=== PATIENT | female | born 1970 | race Caucasian/White ===

== ENCOUNTER 2016-07-17 12:59 | Inpatient (IN) ==
[2016-07-17] MEDS ORDERED: ASPIRIN PO STA (13:12)
[2016-07-17] MEDS ORDERED: NITROGLYCERIN SL PRN (13:12)
--- NOTE | 2016-07-17 13:40 | ED EKG INTERP ---
EKG Interpretation - EKG Time of EKG reading by physician:: 13:02 EKG Read and Signed by:: Chago Domínguez EKG Interpretation (*Must complete 3 of following elements*): Abnormal Rate: 90 Rhythm: normal sinus rhythm Comments: nonspecific T wave abnormality Attestation - Scribe Verification/Attestation Scribe:: Jasmyne Ramos Acting as Scribe for:: Chago Domínguez Scribe documention review:: This chart was documented by a scribe and accurately reflects the service the provider performed and the decisions made by the provider.
[2016-07-17 13:48] LABS: MANUAL DIFF NEEDED? NO
[2016-07-17 13:51] LABS: EOS# 0.19 X1000 (0.0-0.7); EOS% 3.2 % (0.0-10.0); HEMATOCRIT 26.2 % (37.0-47.0); HEMOGLOBIN 8.3 g/dL (12.0-16.0); LYMPH# 1.48 X1000 (1.2-3.4); LYMPH% 24.8 % (20.5-51.1); MCH 26.3 PG (27-31); MCHC 31.7 g/dL (33-37); MCV 83.2 FL (81-99); MONO# 0.43 X1000 (0.11-0.59); MONO% 7.2 % (1.7-9.3); MPV 9.1 FL (7.4-10.4); NEUT% 62.8 % (42.2-75.2); PLT 325 X1000 (130-400); RBC 3.15 XMIL (4.2-5.4)
[2016-07-17 14:04] LABS: INR 1.01; PROTIME 10.7 Seconds (9.2-11.7); PTT 27.2 Seconds (22.0-36.0)
[2016-07-17 15:00] LABS: ALBUMIN 2.7 g/dL (3.5-5.0); CALCIUM 8.4 mg/dL (8.8-10.2); MAGNESIUM 1.8 mg/dL (1.5-2.7); POTASSIUM 4.1 mmol/L (3.5-5.1); TOTAL BILIRUBIN 0.26 mg/dL (0.20-1.00); TOTAL PROTEIN 6.4 g/dL (6.3-8.3)
[2016-07-17] MEDS ORDERED: LASIX IV ONE ×2 (16:26→22:34)
--- NOTE | 2016-07-17 16:32 | PROVIDER DOCUMENTATION ---
HPI-Chest Pain - General Source: patient - History of Present Illness-CP Location: reports: other (L side chest) Chest Pain Radiation: reports: no radiation Quality of Pain: reports: aching Severity in ED: mild Onset/Duration: 24 hours ago Timing: still present, intermittent Context/Activities at Onset: reports: light activity Modifying Factors: improves with: nothing Associated Symptoms: reports: weakness. denies: abdominal pain, back pain, diaphoresis, dizziness, edema, fatigue, fever/chills, headache, heartburn, nausea, rash, shortness of breath, swelling/lump in chest, syncope, vomiting Nitro Today/Relief: no nitro taken today Aspirin Treatment Today: no aspirin today Prior Chest Pain/Cardiac Workup: reports: stress test Similar Symptoms Previously?: Yes Recently Seen Here or By Another Healthcare Provider: No <Jasmyne Ramos - Last Filed: 07/17/16 17:24> <Dany Forte - Last Filed: 07/17/16 18:55> - General Chief Complaint: Chest Pain Stated Complaint: CP Time Seen by Provider: 07/17/16 15:52 Allergies/Adverse Reactions: Patient Allergies Allergy/AdvReac Type Severity Reaction Status Date / Time No Known Allergies Allergy Verified 07/17/16 16:42 Home Medications: Carvedilol 12.5 mg PO BID 02/27/13 Aspirin EC 1 tab PO DAILY 11/18/15 Atorvastatin Calcium [Lipitor] 80 mg PO HS 11/18/15 Hum Insulin NPH/Reg Insulin Hm [Novolin 70-30 100 Unit/ml Vial] 10 unit SQ BID 11/18/15 - History of Present Illness-CP Nature of Presenting Problem: Pt is 45 y/o F presents to the ED with L side chest pain. Pt states chest pain started last night. Pt states pain in L inner thigh as well. Pt denies trauma or injury. Pt denies F. Pt states stent placed in 2009. Pt states two strokes on both sides. (Jasmyne Ramos) Review of Systems - Adult - REVIEW OF SYSTEMS - ADULT Constitutional: denies: chills, fever Eyes: denies: blurred vision, double vision Ears, Nose, Mouth & Throat: denies: ear pain, nose pain, throat pain Cardiovascular: reports: chest pain (L side). denies: heart murmur, irregular heart rate Respiratory: reports: cough. denies: shortness of breath, wheezing Gastrointestinal: denies: abdominal pain, diarrhea, nausea, vomiting Genitourinary: reports: frequency. denies: dysuria, discharge, hematuria Musculoskeletal: reports: muscle aches (L inner thigh). denies: bone pain, back pain, joint pain, neck pain Integumentary: denies: hives, itching Neurological: denies: dizziness/vertigo, headache/migraines Psychiatric: reports: no symptoms reported Endocrine: reports: no symptoms reported Hematologic/Lymphatic: reports: no symptoms reported Allergic/Immunologic: reports: no symptoms reported All Other Systems: Reviewed and Negative <Jasmyne Ramos - Last Filed: 07/17/16 17:24> Past History - Adult - PAST MEDICAL HISTORY-ADULT Review of Records: reports: Nursing Assessment Review, Medications Reviewed, Social history reviewed & non-contributory. Major Childhood Illnesses: reports: denies history Cardiovascular: reports: CAD, CHF, HTN, hyperlipidemia Respiratory: reports: denies history Gastrointestinal: reports: denies history Obstetrical/Gynecological: reports: denies history Genitourinary: reports: denies history Musculoskeletal: reports: denies history Neurological: reports: CVA Psychiatric: reports: denies history Endocrine/Immune: reports: Diabetes Other Conditions: reports: denies history - PRIOR SURGERIES/PROCEDURES Surgical/Procedure History: reports: cardiac stent, BTL - IMMUNIZATION STATUS Childhood Immunizations: See Nurse Assessment Flu Vaccine: See Nurse Assessment - FAMILY HISTORY Family History: reviewed, not pertinent - SOCIAL HISTORY Smoking: quit less than 1 year, cigarettes Provider spent 3-5 mins advising pt. on dangers of tobacco.: Discussed manners to quit use, and f/u contacts for add'l counseling. Substance Use: denies Living Situation: family <Jasmyne Ramos - Last Filed: 07/17/16 17:24> Physical Exam-General - PHYSICAL EXAM-ADULT Initial Vital Signs Reviewed: Yes - CONSTITUTIONAL General Appearance: appears well, alert, mild distress - EYES Eyes: PERRL/EOMI, pink conjunctivae - HEAD, EARS, NOSE, MOUTH & THROAT HENMT: normocephalic/atraumatic, moist mucous membranes, normal ENT inspection - NECK Neck: non-tender, full range of motion, normal inspection - RESPIRATORY Respiratory: chest non-tender, lungs clear, normal breath sounds - CARDIOVASCULAR Cardiovascular: normal peripheral pulses, regular rate, rhythm, no edema - CHEST (BREASTS) Chest/Breast: tenderness (L side) - GASTROINTESTINAL (ABDOMEN) Abdominal Exam: normal bowel sounds, non tender, soft - LYMPHATIC Lymphatic: no adenopathy - MUSCULOSKELETAL Back Exam: normal inspection, no CVA tenderness, no vertebral tenderness Extremity: normal range of motion, normal gait, tenderness (L inner thigh) - SKIN Integumentary: normal color, normal turgor, warm/dry - NEUROLOGIC Neurologic: private duty aide II-XII nml as tested, grossly normal, no motor/sensory deficits - PSYCHIATRIC Psych/Mental Status: normal mood/affect, normal thought content, normal thought process, oriented x 3 <Jasmyne Ramos - Last Filed: 07/17/16 17:24> Progress - EKG 1 Time of EKG reading by physician:: 16:34 EKG Read and Signed by:: Chago Domínguez EKG Interpretation (*Must complete 3 of following elements*): Abnormal Rate: 87 Rhythm: normal sinus rhythm Comments: T wave abnormality, consider lateral ischemia - XRAY 1 XRAY: Bilateral XRAY Study: Chest Impression: Abnormal XRAY Interpretation: cardiomegaly per Dr. Domínguez - CONSULTS/PCP/HOSPITALIST Notification #1 *Consult/PCP/Hospitalist*: Dr. Stringer Time Discussed: 17:18 (Dr. Stringer accepted admit ) Reason/Comments: Dr. Domínguez consults with Dr. Stringer about admit of Pt <Jasmyne Ramos - Last Filed: 07/17/16 17:24> - CT/MRI 1 CT Study: Lower Ext (bilateral lower extremities) Impression: See EMR Report CT Results: Negative DVT study <Dany Forte - Last Filed: 07/17/16 18:55> - PLAN OF CARE/RESULTS Progress/Plan/Lab Results: Laboratory Tests 07/17/16 07/17/16 07/17/16 13:38 13:38 13:38 WBC 5.96 RBC 3.15 L Hgb 8.3 L Hct 26.2 L MCV 83.2 MCH 26.3 L MCHC 31.7 L RDW Std Deviation 14.8 H Plt Count 325 MPV 9.1 Immature Gran % (Auto) 0.0 Neut % (Auto) 62.8 Lymph % (Auto) 24.8 [place] % (Auto) 7.2 Eos % (Auto) 3.2 Baso % (Auto) 2.0 H Immature Gran # (Auto) 0.00 Neut # 3.74 Lymph # 1.48 [place] # 0.43 Eos # 0.19 Baso # 0.12 PT INR PTT (Actin FS) D-Dimer Sodium 136 Potassium 4.1 Chloride 99 Carbon Dioxide 23 L Anion Gap 14 BUN 14 Creatinine 1.4 H Estimated GFR/1.73 m2 40 BUN/Creatinine Ratio 10 Glucose 156 H Calculated Osmolality 276 Calcium 8.4 L Magnesium 1.8 Total Bilirubin 0.26 AST 13 ALT 11 Alkaline Phosphatase 99 Creatine Kinase 135 Troponin T [id number] Pept 6981 H Total Protein 6.4 Albumin 2.7 L Globulin 3.7 Albumin/Globulin Ratio 0.7 07/17/16 07/17/16 07/17/16 13:38 13:38 13:38 WBC RBC Hgb Hct MCV MCH MCHC RDW Std Deviation Plt Count MPV Immature Gran % (Auto) Neut % (Auto) Lymph % (Auto) [place] % (Auto) Eos % (Auto) Baso % (Auto) Immature Gran # (Auto) Neut # Lymph # [place] # Eos # Baso # PT 10.7 INR 1.01 PTT (Actin FS) 27.2 D-Dimer 1.41 H Sodium Potassium Chloride Carbon Dioxide Anion Gap BUN Creatinine Estimated GFR/1.73 m2 BUN/Creatinine Ratio Glucose Calculated Osmolality Calcium Magnesium Total Bilirubin AST ALT Alkaline Phosphatase Creatine Kinase Troponin T < 0.010 Zio-T-Iirblypmqss Pept Total Protein Albumin Globulin Albumin/Globulin Ratio Orders Category Date Time Status Cardiac Monitoring DIRECTED Care 07/17/16 13:12 Active Saline Loc NOW Care 07/17/16 13:12 Active CHEST-2 VIEWS [RAD] Stat Exams 07/17/16 13:12 Taken LUNG SCAN / VQ [NM] Stat Exams 07/17/16 16:27 Ordered CBC WITH ELECTRONIC DIFF [HEME] Stat Lab 07/17/16 13:38 Completed CK PROFILE [SP CHEM] Stat Lab 07/17/16 13:38 Completed COMPREHENSIVE METABOLIC PANEL [CHEM] Stat Lab 07/17/16 13:38 Completed D-DIMER [CHEM] Stat Lab 07/17/16 13:38 Completed MAGNESIUM [CHEM] Stat Lab 07/17/16 13:38 Completed PRO B-NATRIURETIC PEPTIDE Stat Lab 07/17/16 13:38 Completed PROTIME WITH INR [COAG] Stat Lab 07/17/16 13:38 Completed PTT [COAG] Stat Lab 07/17/16 13:38 Completed TROPONIN T Stat Lab 07/17/16 13:38 Completed Aspirin Med 07/17/16 13:12 Discontinued 325 mg PO STAT STA Furosemide [Lasix] Med 07/17/16 16:26 Discontinued 80 mg IV NOW ONE Nitroglycerin Sl [Nitroglycerin] Med 07/17/16 13:12 Active 0.4 mg SL Q5M PRN PRN EKG [EKG] Stat Ther 07/17/16 13:12 Ordered US [Venous U/S Bilateral Legs] [CV] Stat Ther 07/17/16 15:13 Ordered Vital Signs - 24 hr 07/17/16 07/17/16 13:10 16:32 Temperature 98.0 F Pulse Rate 86 90 Respiratory 20 18 Rate Blood Pressure 149/75 164/101 O2 Sat by Pulse 100 94 L Oximetry (Jasmyne Ramos) Departure - Departure Time of Disposition Order: 17:17 Certified Medical Emergency: Emergent <Jasmyne Ramos - Last Filed: 07/17/16 17:24> <Dany Forte - Last Filed: 07/17/16 18:55> - Departure DIAGNOSIS: Left leg swelling, Elevated d-dimer Chest pain Qualifiers: Chest pain type: unspecified Qualified Code(s): R07.9 - Chest pain, unspecified CHF exacerbation Qualifiers: Congestive heart failure type: unspecified congestive heart failure type Qualified Code(s): I50.9 - Heart failure, unspecified Disposition: ADMITTED INPATIENT 09 Condition: Stable Referrals: Enrique Paige MD [Primary Care Provider] - Attestation - Scribe Verification/Attestation Scribe:: Jasmyne Ramos Acting as Scribe for:: Chago Domínguez Scribe documention review:: This chart was documented by a scribe and accurately reflects the service the provider performed and the decisions made by the provider. <Jasmyne Ramos - Last Filed: 07/17/16 17:24> Physician Attestation
[2016-07-17] MEDS ORDERED: LOVENOX SUBQ ONE (17:23)
[2016-07-17] MEDS ORDERED: NORCO-10 PO ONE (17:37)
--- NOTE | 2016-07-17 18:17 | ED EKG INTERP ---
EKG Interpretation - EKG Time of EKG reading by physician:: 16:34 EKG Read and Signed by:: Chago Domínguez EKG Interpretation (*Must complete 3 of following elements*): Abnormal (T wave abnormality, consider lateral ischemia per Dr. Domínguez) Rate: 87 Rhythm: Normal sinus rhythm Attestation - Scribe Verification/Attestation Scribe:: Dany Forte Acting as Scribe for:: Chago Domínguez Scribe documention review:: This chart was documented by a scribe and accurately reflects the service the provider performed and the decisions made by the provider.
--- NOTE | 2016-07-17 18:51 | Diag Imaging Result Document ---
PROCEDURE NAME: CHEST-2 VIEWS - 07/17/2016 TWO VIEWS OF THE CHEST: FINDINGS: There is fluid present in the fissures on the right. There is blunting of the right costophrenic angle. IMPRESSION: Right pleural effusion.
[2016-07-17] MEDS: ZITHROMAX PO SCH (23:30)
[2016-07-17] MEDS: NORCO-5 PO PRN (23:30)
[2016-07-17] MEDS: PROTONIX IV SCH (23:34)
[2016-07-17] MEDS: ROCEPHIN 1 GM/NS 50 ML IV SCH (23:35)
[2016-07-17] MEDS: COREG PO SCH (23:52)
[2016-07-18 05:24] LABS: ALLEN TEST YES; BE 5.6 mmoll (-3.0-3.0); BLOOD TYPE ARTERIAL; DRAW SITE R RADIAL; METHB 1.3 % (0.0-1.5); O2(CT) 16.9 mL/dL (15.0-23.0); PCO2(98.6) 48 mmHg (35-45); PO2(98.6) 74 mmHg (60-100); SAMPLE BLOOD; SAO2 97.3 % (95.0-100.0); pH(98.6) 7.42 (7.35-7.45)
[2016-07-18 05:25] LABS: MODALITY CANNULA
[2016-07-18] MEDS ORDERED: TYLENOL PO ONE (05:57)
[2016-07-18] MEDS ORDERED: HUMALOG SUBQ SCH (07:00)
[2016-07-18 07:25] LABS: MANUAL DIFF NEEDED? NO
--- NOTE | 2016-07-18 07:30 | Diag Imaging Result Document ---
PROCEDURE NAME: LUNG SCAN / VQ - 07/17/2016 VENTILATION-PERFUSION LUNG SCAN: TECHNIQUE: The patient received 40.2 mCi technetium-99m DTPA aerosol for the ventilation portion of the study. There was injection of 5.5 mCi technetium-99m MAA for the perfusion portion of the study. FINDINGS: There is some attenuation due to the patient's body habitus. No evidence of absolute perfusion defect or ventilation-perfusion mismatch is present. IMPRESSION: Normal study.
[2016-07-18 07:31] LABS: BASO% 1.9 % (0.0-0.8); EOS# 0.23 X1000 (0.0-0.7); EOS% 4.8 % (0.0-10.0); HEMATOCRIT 25.6 % (37.0-47.0); HEMOGLOBIN 7.7 g/dL (12.0-16.0); LYMPH# 1.33 X1000 (1.2-3.4); LYMPH% 27.7 % (20.5-51.1); MCH 25.4 PG (27-31); MCHC 30.1 g/dL (33-37); MCV 84.5 FL (81-99); MONO# 0.45 X1000 (0.11-0.59); MONO% 9.4 % (1.7-9.3); MPV 9.5 FL (7.4-10.4); NEUT% 56.2 % (42.2-75.2); PLT 284 X1000 (130-400); RBC 3.03 XMIL (4.2-5.4); RETIC% 2.56 % (0.8-2.1); RETIC-HE 25.2 PG (28.2-36.6)
--- NOTE | 2016-07-18 07:52 | HISTORY AND PHYSICAL ---
CHIEF COMPLAINT: Chest pain. HISTORY OF PRESENT ILLNESS: A 45-year-old, white female patient of Dr. Paige came for evaluation of chest pain. Chest pain going on for 2 days more so last night. The patient described pain as a sharp pain, lasting for few seconds and goes away. The pain is off and on. The pain lasted all night. On the day of admission the patient also had shortness of breath, leg swelling, orthopnea and decreased exercise tolerance. The patient was also complaining of pain in both the legs mainly in the thigh. The patient does have multiple risk factors for coronary artery disease. She had recent CVA. The patient also has a stent in her coronaries about a year ago. In the emergency room her proBNP was elevated. The patient had Elevated D-dimer. The patient had a V/Q scan done which was indeterminate. Venous Doppler according to the preliminary report was negative. Chest x-ray revealed right pleural effusion and patient also found to be anemic. Her hemoglobin a few months ago was 11; this admission it was 8.3, and we decided to admit the patient for further care. The patient does have chest congestion, cough, some scratchy throat. She was also complaining of headache. No high-grade fever or chills. Denied any nausea or vomiting. No dysuria or hematuria. Denied any bleeding. No further history available at this time. ALLERGIES: No known drug allergy. CURRENT MEDICATIONS: The patient is on lisinopril, aspirin, Lipitor, Coreg, vitamin B12, Glucophage and insulin. PAST MEDICAL HISTORY: Significant for CVA, coronary artery disease and stent, hyperlipidemia and IDDM. PERSONAL HISTORY: The patient denied alcohol or substance abuse. Independent in activities of daily living. FAMILY HISTORY: Significant for premature coronary artery disease. PHYSICAL EXAMINATION: GENERAL: Middle-aged white female patient, in mild distress. VITAL SIGNS: Blood pressure 149/75, pulse 86, respirations 20, temperature 98 degrees. SKIN: Normal turgor. No rash or petechiae. Head atraumatic, normocephalic. [place] conjunctivae. Anicteric sclerae. HEENT: Extraocular muscle movement normal. Fundus cannot be penetrated. Good oral hygiene. No tonsillopharyngeal congestion or exudate. Ears and nose benign. NECK: Supple. No JVD, thyromegaly or lymphadenopathy. CHEST: Bibasilar, a few rales. No movement of accessory muscle of respiration at rest. CARDIOVASCULAR: S1 and S2 heard, 2/6 systolic murmur at the apex. ABDOMEN: Soft, globular. Bowel sounds present. EXTREMITIES: No cyanosis, clubbing, 2 to 3+ pitting edema both the legs. INFECTION CONTROL RN: Alert, awake, answering questions fairly well. CONSIDERATION: 1. Patient admitted with chest pain. Clinically her pain is more of atypical pain but considering her multiple risk factors we are going to check serial EKG and cardiac isoenzymes. Her admission EKG revealed nonspecific T-wave changes. No acute ST-T wave changes. 2. Her other problems includes bilateral leg swelling. Dyspnea on exertion. Orthopnea. Consideration is new onset congestive heart failure. I am going to consider echocardiogram and will do cardiology consult. The patient is already on lisinopril and patient received Lasix. 3. Diabetes mellitus. 4. Hypertension, hyperlipidemia and anemia. We are going to do workup for anemia. Recheck blood work. The patient may need blood transfusion. The patient had some symptoms suggestive of upper respiratory tract infection and bronchitis. We will consider antibiotics, Overall plan discussed with the patient and she is in agreement.
[2016-07-18 07:57] LABS: AGAP 13; ALBUMIN 2.3 g/dL (3.5-5.0); ALKALINE PHOSPHATASE 89 U/L (32-104); BUN 16 mg/dL (8-22); CALCIUM 8.4 mg/dL (8.8-10.2); CHLORIDE 101 mmol/L (98-107); COSMO 287; GOT 12 U/L (10-30); GPT 7 U/L (10-36); HDL 31 mg/dL (45-65); IRON SATURATION 9 %; LDL 89 mg/dL; MAGNESIUM 1.8 mg/dL (1.5-2.7); POTASSIUM 3.9 mmol/L (3.5-5.1); SODIUM 142 mmol/L (136-145); TCO2 28 mmol/L (25-35); TIBC 244 ug/dL; TOTAL BILIRUBIN 0.16 mg/dL (0.20-1.00); TOTAL IRON 21 ug/dL (49-151); TOTAL PROTEIN 5.7 g/dL (6.3-8.3); TRIGLYCERIDES 258 mg/dL (35-135); UNBOUND IRON 223 ug/dL (112-346); VLDL 52 mg/dL
[2016-07-18 08:14] LABS: FREE T4 1.12 ng/dL (0.93-1.70)
[2016-07-18] MEDS: COREG PO SCH ×2 (08:18→20:18)
[2016-07-18] MEDS: PRINIVIL PO SCH (08:18)
[2016-07-18] MEDS: GLUCOPHAGE PO SCH ×3 (08:18→17:55)
[2016-07-18] MEDS: LASIX IV SCH (08:18)
[2016-07-18] MEDS: ZITHROMAX PO SCH (08:18)
[2016-07-18] MEDS: VITAMIN B-12 PO SCH (08:18)
--- NOTE | 2016-07-18 08:31 | EKG Report ---
Test Performed on : 07/17/2016 1:02:13 PM Test Reason : Chest Pain Blood Pressure : / mmHG Vent. Rate : 090 BPM Atrial Rate : 090 BPM P-R Int : 148 ms QRS Dur : 084 ms QT Int : 358 ms P-R-T Axes : 055 001 144 degrees QTc Int : 437 ms Normal sinus rhythm. Nonspecific T wave abnormality Abnormal ECG When compared with ECG of 18-NOV-2015 08:17, Nonspecific T wave abnormality now evident in Anterior leads Unconfirmed Result
[2016-07-18] MEDS ORDERED: ASPIRIN EC PO SCH (09:00)
[2016-07-18] MEDS ORDERED: VITAMIN B-12 PO SCH (09:00)
--- NOTE | 2016-07-18 09:40 | EKG Report ---
Test Performed on : 07/17/2016 4:34:36 PM Test Reason : ED. Not ordered in [place] Blood Pressure : / mmHG Vent. Rate : 087 BPM Atrial Rate : 087 BPM P-R Int : 152 ms QRS Dur : 084 ms QT Int : 378 ms P-R-T Axes : 059 001 160 degrees QTc Int : 454 ms Normal sinus rhythm. T wave abnormality, consider lateral ischemia Abnormal ECG No previous ECGs available Unconfirmed Result
[2016-07-18] MEDS: ASPIRIN EC PO SCH (12:00)
--- NOTE | 2016-07-18 13:31 | CONSULTATION ---
DATE OF CONSULTATION: 07/18/2016 INDICATION: Chest pain. HISTORY OF PRESENT ILLNESS: Ms. Avila is a 45-year-old, white female who was a patient of Dr. Hernandez. She has a history of previous PCI and follows with Dr. Bahena in [place]. Patient came in for complaints of chest pain as well as leg pain. Chest pain began Monday evening at rest,no exertional component. It is described as a tightness lasting for a few seconds or so and occurring every 15 minutes. No provokers or palliators. She cannot recall any dietary provokers. She says this pain is different from her previous PCI pain. She has no orthopnea. A V/Q scan done during the ER evaluation was normal but she does not recall missing any medications. She continues to smoke. PAST MEDICAL HISTORY: 1. Significant for stroke. 2. Coronary artery disease with previous stent. 3. Myocardial perfusion imaging in the past shows a fixed inferior defect suggestive of previous IN in the inferior territory. 4. Hyperlipidemia. 5. Diabetes mellitus. 6. Hypertension. SOCIAL HISTORY: The patient continues to smoke. No alcohol. FAMILY HISTORY: Significant for coronary disease. REVIEW OF SYSTEMS: A 10 system review of systems is negative except for those mentioned in HPI. PHYSICAL EXAMINATION: She is afebrile during the course of this hospitalization. Her heart rates are in the 70s. Blood pressure 133/79. Generally no acute distress.HEENT: Oropharynx is moist. Normal dentition. Eye examination shows pink conjunctivae. White sclerae. Neck: Examination shows no obvious thyromegaly or thyroid tenderness. Cardiovascular: She is in a regular rate and rhythm. She has no obvious murmurs. No S3 was heard. No S4. She has trace to 1+ bilateral lower extremity edema and warm and well perfused lower extremities. Chest Exam: Sounds clear to auscultation bilaterally. She has no increased work of breathing. Abdomen: Soft, nontender, nondistended. She has no obvious organomegaly. Skin Exam: Warm and dry throughout without any rashes. Neurological: Moving all extremities well. Cranial nerves 2-12 are intact without any sensation deficits. Psychiatric: Alert and oriented. Pleasant. Normal mood and affect. PERTINENT DATA: Her EKG shows a ventricular rate 87 beats per minute. No ischemic changes. No evidence of acute infarct. Her myocardial perfusion scan from 1 year ago demonstrates a fixed inferior defect suggestive of scar. EF of 49 with wall motion abnormalities in the inferior wall. She had an echocardiogram done a year ago as well which showed an EF of 56%. Suggestion of diastolic dysfunction. LABORATORY DATA: Shows a white count of 4.8, hematocrit 25.6. This is down from February hematocrit 32.3, platelet count 284,000. Her D-dimer was 1.41. Her ABG shows a pH of 7.42, pCO2 of 48, PO2 of 74, sodium 142, potassium 3.9, BUN is 16. Creatinine is 2. That is up from February at BUN and creatinine of 25 and 1.6. Her cardiac enzymes have been negative. Her proBNP was 6981. Her LDL cholesterol was 52. ASSESSMENT: 1. Atypical chest pain in a patient with previous coronary disease. 2. Elevated proBNP in a patient with possible acute renal insufficiency on a baseline of chronic kidney disease. PLAN: Chest x-ray shows a right-sided pleural effusion. No evidence of pulmonary edema. EKG was unremarkable. Cardiac enzymes are unremarkable. We will perform perfusion imaging. I agree with diuretics as currently being utilized. Echocardiogram has been ordered.
[2016-07-18] MEDS: NORCO-5 PO PRN ×2 (14:18→20:19)
--- NOTE | 2016-07-18 14:38 | ECHO REPORT ---
ORDER DATE: 07/18/2016 INDICATION FOR STUDY: Chest pain. FINDINGS: 1. Right atrium is normal in size. 2. There is mild tricuspid regurgitation. RV systolic pressure of 42. 3. Normal RV size and systolic function. 4. Mild pulmonic insufficiency. 5. Moderate left atrial enlargement with a dimension of 5 cm. 6. No mitral valve prolapse. Trace mitral regurgitation. 7. Normal LV size. End-diastolic dimension of 4.9. Moderate left ventricular hypertrophy with a posterior and interventricular septal wall thickness of 1.4 cm each. There is mild reduction in LV systolic function. Calculated EF of 48%. No obvious focal wall motion abnormalities. 8. Aortic valve opens well and appears trileaflet. No evidence of stenosis or insufficiency. 9. Aorta appears normal in visualized segments. 10. No pericardial effusion seen.
[2016-07-18] MEDS: LOVENOX SUBQ SCH (17:55)
[2016-07-18] MEDS: LIPITOR PO SCH (20:18)
[2016-07-18] MEDS: PROTONIX IV SCH (23:37)
[2016-07-18] MEDS: ROCEPHIN 1 GM/NS 50 ML IV SCH (23:37)
[2016-07-19] MEDS: NORCO-5 PO PRN ×3 (04:12→21:32)
[2016-07-19 05:00] LABS: MANUAL DIFF NEEDED? NO
[2016-07-19 05:09] LABS: BASO% 1.2 % (0.0-0.8); EOS% 3.9 % (0.0-10.0); HEMATOCRIT 25.7 % (37.0-47.0); HEMOGLOBIN 7.8 g/dL (12.0-16.0); LYMPH# 1.64 X1000 (1.2-3.4); LYMPH% 32.2 % (20.5-51.1); MCH 25.9 PG (27-31); MCHC 30.4 g/dL (33-37); MCV 85.4 FL (81-99); MONO# 0.46 X1000 (0.11-0.59); MPV 9.2 FL (7.4-10.4); NEUT% 53.7 % (42.2-75.2); PLT 312 X1000 (130-400); RBC 3.01 XMIL (4.2-5.4)
[2016-07-19 05:14] LABS: ALBUMIN 2.6 g/dL (3.5-5.0); CALCIUM 8.2 mg/dL (8.8-10.2); POTASSIUM 4.2 mmol/L (3.5-5.1); TOTAL BILIRUBIN 0.21 mg/dL (0.20-1.00); TOTAL PROTEIN 5.9 g/dL (6.3-8.3)
--- NOTE | 2016-07-19 07:51 | PROGRESS NOTE ---
DATE: 07/18/2015 She is seen today for chest pain. She had atypical chest pain. She is in sinus rhythm. She does not have any chest pain at the present time. Her lungs are clear. She has been seen by the wood preparation supervisor, and has been scheduled for a stress test tomorrow morning. She had an echocardiogram done today.
[2016-07-19] MEDS ORDERED: VENOFER IV ONE (08:25)
[2016-07-19] MEDS ORDERED: NS 500 ML IV ONE (08:25)
[2016-07-19] MEDS ORDERED: LEXISCAN ONE (08:35)
[2016-07-19] MEDS ORDERED: VENOFER 300 MG in NS 250 ML IV ONE (09:00)
[2016-07-19] MEDS ORDERED: AMINOPHYLLINE ONE (09:20)
[2016-07-19] MEDS: PRINIVIL PO SCH (10:26)
[2016-07-19] MEDS: ASPIRIN EC PO SCH (10:27)
[2016-07-19] MEDS: VITAMIN B-12 PO SCH (10:27)
[2016-07-19] MEDS: COREG PO SCH ×2 (10:27→21:32)
[2016-07-19] MEDS: ZITHROMAX PO SCH (10:27)
[2016-07-19] MEDS: LASIX IV SCH (10:27)
--- NOTE | 2016-07-19 14:26 | PROGRESS NOTE ---
DATE: 07/19/2016 SUBJECTIVE: She has not had any chest pain. The patient continues to have exquisite tenderness to palpation in the left medial thigh. PHYSICAL EXAMINATION: Vital signs: She is afebrile. Heart rates are in the 70s to 80s. Blood pressure 143/64. General: She is in no acute distress. Cardiovascular: She sounds to be in a regular rate and rhythm. She has no obvious murmurs. She has no S3. She has no lower extremity edema. She has tenderness to palpation in the mid left thigh with no obvious discrete mass. There is no induration or erythema to the area either. Chest Exam: Sounds clear to auscultation bilaterally. No increased work of breathing. Abdomen: Soft, nontender, nondistended. She has no obvious organomegaly. Skin Exam: Warm and dry throughout without any rashes PERTINENT DATA: White count is 5, hematocrit 25.7, platelet count is 312,000. Her sodium is 139, potassium 4.2. Her BUN is 19, creatinine is 1.8. ASSESSMENT: 1. Chest pain. 2. Leg pain. PLAN: Myocardial perfusion imaging was unremarkable. She had an inferior defect which was consistent from study in May 2015, with no evidence of ischemia. I would continue her on medical therapy. Could consider CT scanning of that mid left thigh area to further evaluate. However, initial discussions with the tech doing the of venous ultrasound did not demonstrate any discrete fluid collections or evidence of hematoma in the area. Her blood pressure has been somewhat elevated recently in the 140s systolic. I will make an addition of amlodipine 2.5 mg daily to her home medicine regimen to increase the antianginals in this patient. At this point, I have no further recommendations. Please contact us if we can be of further assistance.
--- NOTE | 2016-07-19 14:42 | Diag Imaging Result Document ---
PROCEDURE NAME: MYOCARDIAL PERF SCAN, STR/REST - 07/19/2016 INDICATION: Chest pain. PROCEDURES PERFORMED: 1. One-day stress rest myocardial perfusion imaging. 2. Lexiscan stress. PROCEDURE IN DETAIL: Ms. Avila was brought to the nuclear laboratory and had a resting study with injection of 15 mCi of technetium-99m sestamibi with imaging protocol utilized. She subsequently was brought back down and had a Lexiscan stress and at peak stress, was injected with 46.1 mCi of technetium-99m sestamibi with usual imaging protocol utilized. FINDINGS: LEXISCAN STRESS RESULTS: 1. Baseline EKG shows sinus rhythm. 2. Patient did not experience any ischemic related EKG changes or significant arrhythmias occurring during the course of the study. PERFUSION IMAGING RESULTS: 1. No evidence of abnormal extracardiac uptake. 2. TID ratio is 1.05. 3. Perfusion imaging demonstrates a moderate sized, moderate intensity, fixed defect located in the inferoapical, midinferior, and portions of the inferolateral joy. This defect appears to be fixed. There is some mild improvement from rest to stress imaging. This appears consistent with the study that she had in 2014. 4. Mildly reduced ejection fraction of 49%. End-diastolic volume 188, end systolic volume of 96. Inferior hypokinesis is noted.
[2016-07-19] MEDS ORDERED: NORCO-5 PO ONE (14:50)
[2016-07-19] MEDS: LOVENOX SUBQ SCH (19:02)
[2016-07-19] MEDS: LIPITOR PO SCH (21:31)
[2016-07-19] MEDS: SODIUM CHLORIDE 0.9% INJ SCH (23:06)
[2016-07-19] MEDS: PROTONIX IV SCH (23:06)
[2016-07-19] MEDS: ROCEPHIN 1 GM/NS 50 ML IV SCH (23:06)
[2016-07-20] MEDS: NORCO-5 PO PRN ×4 (03:51→23:36)
[2016-07-20 04:54] LABS: MANUAL DIFF NEEDED? NO
[2016-07-20 05:14] LABS: BASO% 1.5 % (0.0-0.8); EOS% 3.4 % (0.0-10.0); HEMATOCRIT 28.8 % (37.0-47.0); LYMPH# 1.38 X1000 (1.2-3.4); LYMPH% 23.6 % (20.5-51.1); MCH 26.2 PG (27-31); MCHC 31.3 g/dL (33-37); MONO# 0.59 X1000 (0.11-0.59); MONO% 10.1 % (1.7-9.3); NEUT% 61.4 % (42.2-75.2); PLT 312 X1000 (130-400); RBC 3.43 XMIL (4.2-5.4)
[2016-07-20 05:27] LABS: CALCIUM 8.6 mg/dL (8.8-10.2); POTASSIUM 3.6 mmol/L (3.5-5.1)
[2016-07-20] MEDS: NORVASC PO SCH (09:20)
[2016-07-20] MEDS: VITAMIN B-12 PO SCH (09:21)
[2016-07-20] MEDS: ZITHROMAX PO SCH (09:21)
[2016-07-20] MEDS: COREG PO SCH ×2 (09:21→20:19)
[2016-07-20] MEDS: ASPIRIN EC PO SCH (09:21)
[2016-07-20] MEDS: PRINIVIL PO SCH (09:21)
[2016-07-20] MEDS: LASIX IV SCH (09:22)
--- NOTE | 2016-07-20 11:24 | Extremity Venous Study ---
PROCEDURE NAME: Venous U/S Bilateral Legs - 07/17/2016 INDICATIONS: The patient has edema and elevated D-dimer. FINDINGS: Bilateral lower extremity venous images accomplished. The common femoral, superficial femoral, deep femoral, popliteal, posterior tibial, peroneal, and greater saphenous are imaged bilaterally. Doppler is used to evaluate the veins for spontaneity, phasicity, respiratory excursion, and distal augmentation. All veins are compressible. No intraluminal clot is seen. INTERPRETATION: No evidence of deep or superficial venous thrombosis in either lower extremity veins identified.
[2016-07-20] MEDS: FLEXERIL PO SCH ×2 (11:54→20:19)
[2016-07-20] MEDS: LOVENOX SUBQ SCH (20:19)
[2016-07-20] MEDS: LIPITOR PO SCH (20:19)
[2016-07-20] MEDS: ROCEPHIN 1 GM/NS 50 ML IV SCH (22:13)
[2016-07-20] MEDS: PROTONIX IV SCH (22:13)
[2016-07-20] MEDS: SODIUM CHLORIDE 0.9% INJ SCH (22:13)
[2016-07-21] MEDS: NORCO-5 PO PRN (06:09)
[2016-07-21 08:16] VITALS: BP 143/70
[2016-07-21] MEDS: FLEXERIL PO SCH (08:46)
[2016-07-21] MEDS: PRINIVIL PO SCH (08:47)
[2016-07-21] MEDS: NORVASC PO SCH (08:47)
[2016-07-21] MEDS: COREG PO SCH (08:47)
[2016-07-21] MEDS: ASPIRIN EC PO SCH (08:47)
[2016-07-21] MEDS: VITAMIN B-12 PO SCH (08:47)
[2016-07-21] MEDS: LASIX IV SCH (08:47)
[2016-07-21] MEDS: ZITHROMAX PO SCH (08:48)
--- NOTE | 2016-07-23 21:08 | DISCHARGE SUMMARY ---
ADMISSION DATE: 07/17/2016 DISCHARGE DATE: 07/21/2016 DISCHARGING DIAGNOSIS: Chest pain with underlying ischemic cardiomyopathy, ejection fraction 48% with a mild congestive heart failure. SECONDARY DIAGNOSIS: Left thigh pain due to musculoskeletal. OTHER DIAGNOSES: 1. Left stroke due to lacunar infarcts. 2. Coronary artery disease with chronic systolic heart failure stable. 3. Type 2 diabetes. 4. Hyperlipidemia. 5. Hypertension. 6. Chronic kidney disease. Baseline creatinine is 1.2. 7. Anemia due to chronic disease. CONSULTS: Dr. Leyva. PROCEDURES: Venous Doppler studies. Left leg is negative. V/Q scan normal study. Myocardial perfusion scan. Defects are fixed. Reduced EF around 45%. Inferior hypokinesis. No reversible defects noted. Transfusion of 1 unit of packed RBC and 300 mg of Venofer infusion BRIEF HISTORY: Please see the H and P that was done by Dr. Stringer In brief she is a 45-year- old white female noncompliant came to the hospital with left thigh pain, shortness of breath, chest pain. She has known history of coronary artery disease and small vessel disease causing the strokes. HOSPITAL COURSE: 1. She was ruled out for PE based on the venous Doppler studies and V/Q scan. We were not able to do the pulmonary angiogram due to elevation of creatinine. 2. For chest pain proBNP was elevated. She was given Lasix and further workup did not show any evidence of reversible ischemia. 3. Anemia due to chronic disease, given a unit of packed RBC and iron infusion , followup occult heme negative. Rest of the hospital course was uneventful. She was complaining of left thigh pain. I have not seen any rashes. Pulses are palpable. Venous Dopplers were negative. She was given Flexeril. LABORATORIES: At the time of discharge. CBC. White cell count 5.8, hematocrit 28, platelets 312,000. ABG on 2 L pH is 7.42, pCO2 48, PO2 74. SMA 7. Sodium 138, potassium 3.6, chloride 99, BUN 19, creatinine 1.6, glucose 211. A1c 7.0. LFTs were normal. Cardiac enzymes were normal. ProBNP was 7000. Folate, B12 were normal. Free T4 is normal. DISCHARGE INSTRUCTIONS: Coreg 12.5 p.o. b.i.d., lisinopril 20 mg daily, B12 250 mcg daily, Lipitor 80 daily, aspirin 325 daily, Novolin 70/30 ten units subcu b.i.d., resume metformin 850 p.o. t.i.d. next week, Icar Plus 1 tablet daily. Follow up on [facility] 7 in 2 weeks. [facility]
== END 2016-07-21 10:10 | disposition home or self-care (01) | DRG 292 ==
LOC: ED 12:59 → EDIPHOLD 19:13 → 3S 07-18 14:54
PROVIDERS: ADMIT Internal Medicine; ATTEND Internal Medicine
PROC: 30233N1 Transfusion of Nonautologous Red Blood Cells into Peripheral Vein, Percutaneous Approach (ICD-10-PCS; principal; 2016-07-19)
DX: I13.0 Hypertensive heart and chronic kidney disease with heart failure and stage 1 through stage 4 chronic kidney disease, or unspecified chronic kidney disease (principal); I50.22 Chronic systolic (congestive) heart failure; E11.22 Type 2 diabetes mellitus with diabetic chronic kidney disease; I25.5 Ischemic cardiomyopathy; I25.2 Old myocardial infarction; N18.9 Chronic kidney disease, unspecified; D63.8 Anemia in other chronic diseases classified elsewhere; E78.5 Hyperlipidemia, unspecified; I25.10 Atherosclerotic heart disease of native coronary artery without angina pectoris; M79.652 Pain in left thigh; R79.1 Abnormal coagulation profile; Z86.73 Personal history of transient ischemic attack (TIA), and cerebral infarction without residual deficits; Z95.5 Presence of coronary angioplasty implant and graft; Z79.82 Long term (current) use of aspirin; Z79.899 Other long term (current) drug therapy; Z79.4 Long term (current) use of insulin; Z87.891 Personal history of nicotine dependence; Z71.6 Tobacco abuse counseling; Z79.84 Long term (current) use of oral hypoglycemic drugs; Z82.49 Family history of ischemic heart disease and other diseases of the circulatory system
CPT/HCPCS: 36415; 71020; 78452; 78582; 80048; 80053; 80061; 82270; 82550; 82607; 82728; 82746; 82805; 82948; 83036; 83540; 83550; 83735; 83880; 84439; 84443; 84484; 85025; 85045; 85379; 85610; 85730; 86850; 86900; 86901; 86920; 93005; 93017; 93306; 93970; 94761; 96365; 96372; 96375; 96376; A9500; A9539; A9540; C9113; J0280; J0696; J1650; J1756; J1940; J7040; J7050; P9016; J0820; S0164

== ENCOUNTER 2018-10-09 19:51 | Inpatient (IN) ==
[2018-10-09] MEDS ORDERED: MORPHINE IV ONE (20:36)
[2018-10-09] MEDS ORDERED: TYLENOL PO ONE (20:36)
[2018-10-09 20:55] LABS: BASO# 0.13 X1000 (0.0-0.2); BASO% 1.2 % (0.0-0.8); EOS# 0.36 X1000 (0.0-0.7); EOS% 3.3 % (0.0-10.0); HEMOGLOBIN 13.3 g/dL (12.0-16.0); IMM GRAN# 0.02 X1000 (0.0-0.04); IMM GRAN% 0.2 % (0.0-0.5); LYMPH# 2.57 X1000 (1.2-3.4); LYMPH% 23.6 % (20.5-51.1); MCH 30.8 PG (27-31); MCHC 33.3 g/dL (33-37); MCV 92.6 FL (81-99); MONO# 0.75 X1000 (0.11-0.59); MONO% 6.9 % (1.7-9.3); MPV 9.7 FL (7.4-10.4); NEUT# 7.06 X1000 (1.4-6.5); NEUT% 64.8 % (42.2-75.2); PLT 257 X1000 (130-400); RBC 4.32 XMIL (4.2-5.4); RDW 13.5 % (11.5-14.5); WBC 10.89 X1000 (4.8-10.8)
[2018-10-09 21:13] LABS: ALB/GLOB RATIO 0.9; ALBUMIN 3.6 g/dL (3.5-5.0); CALCIUM 9.1 mg/dL (8.8-10.2); CREATININE 4.7 mg/dL (0.5-0.9); POTASSIUM 4.3 mmol/L (3.5-5.1); TOTAL BILIRUBIN 0.45 mg/dL (0.20-1.00); TOTAL PROTEIN 7.4 g/dL (6.3-8.3)
[2018-10-09] MEDS ORDERED: VANCOMYCIN 1 GM/NS 1 GM/250 ML IVPB IV ONE (23:39)
--- NOTE | 2018-10-09 23:42 | PROVIDER DOCUMENTATION ---
This chart was entered by Radha Wright Scribe, acting as scribe for Fidel Padron MD. HPI-Rash/Wound/ReCheck - General Chief Complaint: Post Op Complaint Stated Complaint: POST OP COMPLICATIONS Time Seen by Provider: 10/09/18 20:24 Source: patient Allergies/Adverse Reactions: Allergies Allergy/AdvReac Type Severity Reaction Status Date / Time No Known Allergies Allergy Verified 09/11/18 07:41 Home Medications: Home Medication List Medication Instructions Recorded Confirmed Last Taken Type Carvedilol 12.5 mg PO BID 02/27/13 09/06/18 09/11/18 05:20 History Atorvastatin Calcium [Lipitor] 80 mg PO QHS 11/18/15 09/06/18 09/10/18 History Aspirin [Aspir-Low] 81 mg PO DAILY 05/06/17 09/06/18 09/06/18 History Clopidogrel [Plavix] 75 mg PO DAILY 05/06/17 09/06/18 09/06/18 History Hydralazine [Apresoline] 50 mg PO TID 05/06/17 09/06/18 09/11/18 05:20 History Nitroglycerin 0.4 mg SL DIRECTED 08/23/17 09/06/18 Unknown History Amlodipine Besylate 5 mg PO DAILY 02/01/18 09/06/18 09/11/18 05:20 History Cyanocobalamin (Vitamin B-12) 500 mg PO DAILY 02/01/18 09/06/18 09/10/18 History [Vitamin B-12] Insulin Regular, Human [Novolin R] 1 dose SQ DIRECTED PRN 02/01/18 09/06/18 09/10/18 History Gabapentin [Neurontin] 300 mg PO BID 07/31/18 09/06/18 09/10/18 History Insulin NPH Hum/Reg Insulin Hm 20 unit SQ BID 07/31/18 09/06/18 09/10/18 History [Novolin 70-30 100 Unit/ml Vial] Ondansetron [Zofran] 4 mg PO Q6H PRN PRN 07/31/18 09/06/18 09/10/18 History Hydrocodone/APAP 7.5 mg/325 mg 1 each PO Q6H PRN PRN #10 tablet 08/07/18 09/06/18 Unknown Rx [Endeavor-7.5] Hydrocodone/Acetaminophen [[place] 1 each PO Q6H PRN PRN #12 tablet 09/11/18 Unknown Rx 10-325 Tablet] Promethazine [Phenergan] 25 mg PO Q6H PRN PRN #5 tablet 09/11/18 Unknown Rx - History of Present Illness-Dermatology Nature of Presenting Problem: Pt is 48/F presenting to ED w/ c/o infected fistula. Pt has fistula placed 09/11. She has had some fever, chills, perulent drainage from area. Location: reports: upper extremity (L arm) Severity: reports: moderate Onset/Duration: reports: just prior to arrival Timing: reports: still present Context/Associated Symptoms: reports: abscess, other (Fistula site) Identifiable cause?: Yes Review of Systems - Adult - REVIEW OF SYSTEMS - ADULT Constitutional: reports: fever (100.7 at home) Eyes: reports: no symptoms reported Ears, Nose, Mouth & Throat: reports: no symptoms reported Cardiovascular: reports: no symptoms reported. denies: chest pain, edema Respiratory: reports: no symptoms reported. denies: cough Gastrointestinal: reports: no symptoms reported. denies: abdominal pain, nausea, vomiting Genitourinary: reports: no symptoms reported Musculoskeletal: reports: no symptoms reported Integumentary: reports: no symptoms reported Neurological: reports: no symptoms reported. denies: dizziness/vertigo, headache/migraines Psychiatric: reports: no symptoms reported Endocrine: reports: no symptoms reported Hematologic/Lymphatic: reports: no symptoms reported Allergic/Immunologic: reports: no symptoms reported All Other Systems: Reviewed and Negative Past History - Adult - PAST MEDICAL HISTORY-ADULT Review of Records: reports: Old Records Reviewed, Nursing Assessment Review, Medications Reviewed, Social history reviewed & non-contributory. Major Childhood Illnesses: reports: denies history Cardiovascular: reports: CAD, CHF, HTN, hyperlipidemia Respiratory: reports: denies history Gastrointestinal: reports: denies history Obstetrical/Gynecological: reports: denies history Genitourinary: reports: denies history Musculoskeletal: reports: denies history Neurological: reports: CVA Psychiatric: reports: denies history Endocrine/Immune: reports: Diabetes Other Conditions: reports: denies history - PRIOR SURGERIES/PROCEDURES Surgical/Procedure History: reports: cardiac stent, BTL - IMMUNIZATION STATUS Childhood Immunizations: See Nurse Assessment Flu Vaccine: See Nurse Assessment - FAMILY HISTORY Family History: reviewed, not pertinent - SOCIAL HISTORY Smoking: cigarettes Provider spent 3-5 mins advising pt. on dangers of tobacco.: Discussed manners to quit use, and f/u contacts for add'l counseling. Substance Use: none presently/history of abuse Alcohol Use Frequency: never Living Situation: family Physical Exam-General - PHYSICAL EXAM-ADULT Initial Vital Signs Reviewed: Yes - CONSTITUTIONAL General Appearance: appears well, alert, no apparent distress - EYES Eyes: PERRL/EOMI, pink conjunctivae - HEAD, EARS, NOSE, MOUTH & THROAT HENMT: normocephalic/atraumatic, moist mucous membranes, normal ENT inspection, TMs normal, pharynx normal - NECK Neck: non-tender, full range of motion, supple, normal inspection - RESPIRATORY Respiratory: lungs clear - CARDIOVASCULAR Cardiovascular: regular rate, rhythm - GASTROINTESTINAL (ABDOMEN) Abdominal Exam: soft - LYMPHATIC Lymphatic: no adenopathy - MUSCULOSKELETAL Back Exam: normal inspection, no CVA tenderness, no vertebral tenderness Extremity: non-tender, other (Pt has abscess that is draining yellow, perulent discharge w/ red and warmth next to fistula on L AC) - SKIN Integumentary: normal color, warm/dry - NEUROLOGIC Neurologic: grossly normal - PSYCHIATRIC Psych/Mental Status: normal mood/affect, normal thought content, normal thought process, oriented x 3 Progress - PLAN OF CARE/RESULTS Progress/Plan/Lab Results: Vital Signs - 8 hr 10/09/18 19:57 Temperature 99.0 F Pulse Rate 92 H Respiratory Rate 18 Blood Pressure 189/119 O2 Sat by Pulse Oximetry 96 Laboratory Results - last 24 hr 10/09/18 10/09/18 10/09/18 20:30 20:30 20:30 WBC 10.89 H RBC 4.32 Hgb 13.3 Hct 40.0 MCV 92.6 MCH 30.8 MCHC 33.3 RDW Std Deviation 13.5 Plt Count 257 MPV 9.7 Immature Gran % (Auto) 0.2 Neut % (Auto) 64.8 Lymph % (Auto) 23.6 [place] % (Auto) 6.9 Eos % (Auto) 3.3 Baso % (Auto) 1.2 H Immature Gran # (Auto) 0.02 Neut # (Auto) 7.06 H Lymph # (Auto) 2.57 [place] # (Auto) 0.75 H Eos # (Auto) 0.36 Baso # (Auto) 0.13 Sodium 137 Potassium 4.3 Chloride 100 Carbon Dioxide 22 L Anion Gap 15 BUN 36 H Creatinine 4.7 H Estimated GFR/1.73 m2 10 BUN/Creatinine Ratio 8 Glucose 179 H Calculated Osmolality 287 Calcium 9.1 Total Bilirubin 0.45 AST 12 ALT 13 Alkaline Phosphatase 202 H Total Protein 7.4 Albumin 3.6 Globulin 3.8 Albumin/Globulin Ratio 0.9 Plasma Lactate 0.9 Orders Category Date Time Status BLOOD CULTURE [BLDCUL] Stat Lab 10/09/18 20:30 Received CBC WITH ELECTRONIC DIFF [HEME] Stat Lab 10/09/18 20:30 Completed COMPREHENSIVE METABOLIC PANEL [CHEM] Stat Lab 10/09/18 20:30 Completed LACTATE, PLASMA [CHEM] Stat Lab 10/09/18 20:30 Completed Acetaminophen [Tylenol] Med 10/09/18 20:36 Discontinued 1,000 mg PO NOW ONE Morphine Med 10/09/18 20:36 Discontinued 2 mg IV NOW ONE Vancomycin 1 gm/Ns Med 10/09/18 23:39 Active 1 gm in 250 ml IV NOW Generalized Adult Illness >60 Stat Oth 10/09/18 20:06 Ordered Pt has draining from wound right by AV fistula, blood cultures sent, will give IV abx and admit Result Diagrams: 10/09/18 20:30 10/09/18 20:30 Departure - Departure Date of Disposition Decision: 10/09/18 Time of Disposition Decision: 23:41 DIAGNOSIS: Abscess Disposition: ADMITTED INPATIENT 09 Certified Medical Emergency: Emergent Condition: Stable Referrals and Follow-Ups: Renetta Bianchi [Primary Care Provider] - - Critical Care Note This patient required my direct & personal management of CC.: No Attestation - Physician/ ISHAAN Attestation Patient care was provided by Advanced Practice Provider:: No The physician spent face to face time with patient:: Yes Advanced Practice Provider documentation review:: Supervising physician onsite and consulted in the evaluation and care of this patient. The physician did have a face to face encounter with the patient. This chart was documented by the indicated scribe, (Radha Wright Scribe) and accurately reflects the services I performed and decisions made by me, Fidel Padron MD, as attested by the provider's signature.
--- NOTE | 2018-10-10 01:02 | HISTORY AND PHYSICAL ---
PRIMARY CARE PHYSICIAN: Dr. Renetta Bianchi. CHIEF COMPLAINT: Left upper extremity fistula draining and infected. HISTORY OF PRESENTING ILLNESS: A 48-year-old female with a history of end-stage renal disease, on renal dialysis Monday, Monday, Monday, hypertension, diabetes mellitus type 2, and coronary disease who presented to emergency department with several days history of noticing left upper extremity pain and drainage from her fistula. She was evaluated in the emergency department and there were moderate drainage from the fistula and it seemed infected. Subsequently, it was thought that she would require admission for further management. At the time of my examination, she had denied any headache, fever, chills, chest pain, shortness of breath, hemoptysis, or any weight changes but complained of left upper extremity pain. PAST MEDICAL HISTORY: Includes end-stage renal disease, hypertension, diabetes mellitus type 2, hyperlipidemia, coronary disease, CVA. PAST SURGICAL HISTORY: Coronary stent, left upper extremity fistula. ALLERGIES: No known drug allergies. CURRENT MEDICATIONS: Include Norvasc 5 mg p.o. daily, aspirin 81 mg p.o. daily, atorvastatin 80 mg p.o. at bedtime, carvedilol 12.5 mg p.o. b.i.d., Plavix 75 mg p.o. daily, gabapentin 300 mg p.o. b.i.d., hydralazine 50 mg p.o. t.i.d., Horatio 10 one p.o. q.6 hours, Novolin 70/30, 20 units subcu b.i.d. SOCIAL HISTORY: A 30 pack years history of smoking. Admits to social alcohol use. Denies any illicit drug use. FAMILY HISTORY: Positive for coronary disease in mother and father. REVIEW OF SYSTEMS: Fourteen-point review of systems is as in HPI. Other systems negative. PHYSICAL EXAMINATION: GENERAL: Cooperative, friendly female, she is resting comfortably now. VITAL SIGNS: Temperature 99 degrees, pulse 92, respiration 18, blood pressure 189/119. HEENT: Atraumatic, normocephalic. Extraocular movements intact. PERRLA. NECK: No masses. CHEST: Clear to auscultation. CARDIOVASCULAR: Regular rate and rhythm. ABDOMEN: Soft, positive bowel sounds. EXTREMITIES: Left upper extremity drainage from fistula. GENITOURINARY: No bladder distention. NEUROLOGIC: Nonfocal. SKIN: Warm. LABORATORIES AND STUDIES: WBC 10.89, hemoglobin 13.3, hematocrit 40.0, platelets 257,000. Sodium 137, potassium 4.2, chloride 100, CO2 of 22, BUN is 36, creatinine 4.7. Glucose is 179. ASSESSMENT: This is a 48-year-old female with a history of end-stage renal disease, hypertension, diabetes mellitus type 2, and coronary disease, who had presented to emergency department with complaint of several days history of noticing drainage from her fistula on her left arm. She also complained of moderate amount of pain. She was evaluated in the emergency department, and due to presenting symptoms, she will require admission for further management assessment. 1. Left upper extremity fistula infection/drainage. 2. End-stage renal disease. 3. Diabetes mellitus type 2. 4. Hypertension. PLAN: 1. We will admit patient to medical floor with telemetry. 2. We will start patient on IV antibiotics. 3. We will consult Nephrology for dialysis. 4. We will monitor blood glucose and put patient on sliding scale insulin regimen. 5. Monitor blood pressure. Resume antihypertensive agent. 6. Put patient on DVT prophylaxis with SCDs. 7. Continue follow and reassess, make further recommendations based on patient's clinical course. cc: Shahab Camp MD MTDD
[2018-10-10] MEDS ORDERED: VANCOMYCIN IV PER PHARMACY MISC SCH (02:06)
[2018-10-10] MEDS: MORPHINE IV PRN ×4 (02:58→22:46)
[2018-10-10 03:40] LABS: BASO# 0.11 X1000 (0.0-0.2); BASO% 1.3 % (0.0-0.8); EOS# 0.41 X1000 (0.0-0.7); EOS% 4.9 % (0.0-10.0); HEMATOCRIT 41.8 % (37.0-47.0); HEMOGLOBIN 13.7 g/dL (12.0-16.0); IMM GRAN# 0.03 X1000 (0.0-0.04); IMM GRAN% 0.4 % (0.0-0.5); LYMPH# 2.94 X1000 (1.2-3.4); LYMPH% 34.8 % (20.5-51.1); MCH 31.3 PG (27-31); MCHC 32.8 g/dL (33-37); MCV 95.4 FL (81-99); MONO# 0.76 X1000 (0.11-0.59); MPV 9.9 FL (7.4-10.4); NEUT% 49.6 % (42.2-75.2); PLT 225 X1000 (130-400); RBC 4.38 XMIL (4.2-5.4); RDW 13.7 % (11.5-14.5); WBC 8.45 X1000 (4.8-10.8)
[2018-10-10] MEDS ORDERED: VANCOMYCIN 1 GM/NS 1 GM/250 ML IVPB IV SCH (06:00)
[2018-10-10] MEDS: HUMULIN R SUBQ SCH ×4 (06:30→22:50)
[2018-10-10] MEDS ORDERED: TIGHT: 0.2 ML/HR FOR DIALYSIS MISC PRN (08:03)
[2018-10-10] MEDS ORDERED: NS 2,000 ML MISC PRN (08:03)
[2018-10-10] MEDS ORDERED: HEPARIN IV PRN (08:03)
[2018-10-10] MEDS ORDERED: TAZIDIME 1 GM in NS 50 ML IV SCH (08:15)
[2018-10-10] MEDS: HEPARIN SUBQ SCH ×2 (13:52→19:33)
[2018-10-10] MEDS: PLAVIX PO SCH (14:47)
[2018-10-10] MEDS: VITAMIN B-12 PO SCH (14:47)
[2018-10-10] MEDS: ASPIRIN EC PO SCH (14:47)
[2018-10-10] MEDS: NORVASC PO SCH (14:47)
[2018-10-10] MEDS ORDERED: TAZIDIME 1 GM in NS 50 ML IV ONE (17:00)
[2018-10-10] MEDS ORDERED: VANCOMYCIN 1 GM/NS 1 GM/250 ML IVPB IV ONE (17:30)
--- NOTE | 2018-10-10 18:52 | NEPHROLOGY CONSULTATION ---
DATE: 10/10/2018 REASON FOR ADMISSION: Left upper extremity fistula draining, fever, nausea and vomiting. REASON FOR CONSULTATION: CKD 5D, assist with management. REQUESTING PHYSICIAN: Dr. Camp. HISTORY: This is a 48-year-old female well known to our service for endstage renal disease, on hemodialysis Monday, Monday and Monday at the [facility]. She states that yesterday she woke up and had a fever. She also developed nausea and vomiting, and noticed that she had drainage from the incision site to her fistula to the left upper extremity. She called her surgeon and was directed to the emergency room, where she was admitted, treated with antibiotics and planned for further workup and treatment. We have been asked to see her for her CKD stage 5. PAST MEDICAL HISTORY: Endstage renal disease, hypertension, diabetes type 2, hyperlipidemia, CVA, coronary artery disease. PAST SURGICAL HISTORY: Left upper extremity fistula, coronary artery stenting. She has a tunneled dialysis catheter, right upper chest wall. ALLERGIES: None. HOME MEDICATIONS: Norvasc, aspirin, atorvastatin, carvedilol, Plavix, gabapentin, hydralazine, [place], Novolin. FAMILY HISTORY: Coronary artery disease. SOCIAL HISTORY: Continues to smoke. Admits to social alcohol. No illicit drug use. REVIEW OF SYSTEMS: Nausea, vomiting, fever, pain, drainage to the left upper extremity. PHYSICAL EXAMINATION: Vital signs: Temperature 99 degrees, pulse 92, respiratory rate 18, blood pressure 189/119. General: This is a middle-aged female sitting up in bed, awake and alert, undergoing dialysis. No acute distress. HEENT: Normocephalic, atraumatic. WILLIAMS. Conjunctivae pink. Neck is supple. No JVD. Cardiovascular: Regular rate and rhythm. Pulmonary: She is clear bilaterally. Equal excursion. Abdomen is soft, with positive bowel sounds. not inspected. Minimal void with hemodialysis assist. Extremities: She has purulent drainage noted to the left upper extremity AC area from the incision site. She has erythema noted around that. Trace lower extremity edema. Integumentary: Skin is warm and dry other than above noted. Neurologic is grossly nonfocal. LABORATORY DATA: WBC of 10.8, hemoglobin 40. Sodium 137, potassium 4.2, CO2 is 22, creatinine 4.7. ASSESSMENT AND PLAN: 1. Chronic kidney disease stage 5D. Today is her routine dialysis day. We will dialyze on a 2 potassium bath/ultrafiltration to her dry weight/4-hour treatment. She has quite a bit of fluid on and if we are not able to get all of this off, I told her she may need additional treatment tomorrow for ultrafiltration removal only. The patient was in agreement. 2. Acute febrile illness. She is on vancomycin. We will add Fortaz until her blood cultures are back. She should have surgical consult if not already. 3. Electrolytes, acid-base balance, anemia. Continue with current treatment plan. Monitor. 4. Hypertension. Restart home medications. 5. Fluid volume. She is not overloaded. Catheter sepsis appears more likely that bacteremia from the fistula in my opinion. rg Dictated by RAFAELA Vila for Aaron Jones MD Face to face encounter, data reviewed, discussed with Yan Forbes on 10/10/18. I agree with the above assessment and plan of care. ciaran cc: Aaron Jones MD [facility]
[2018-10-10] MEDS ORDERED: LIPITOR PO SCH (21:00)
[2018-10-10] MEDS: COREG PO SCH (22:48)
[2018-10-10] MEDS: NEURONTIN PO SCH (22:49)
[2018-10-11] MEDS: MORPHINE IV PRN ×3 (03:26→14:51)
[2018-10-11] MEDS: HEPARIN SUBQ SCH ×2 (03:30→14:54)
[2018-10-11] MEDS: HUMULIN R SUBQ SCH ×2 (06:28→11:21)
[2018-10-11 08:45] LABS: BASO# 0.17 X1000 (0.0-0.2); BASO% 2.5 % (0.0-0.8); EOS# 0.57 X1000 (0.0-0.7); EOS% 8.4 % (0.0-10.0); HEMATOCRIT 40.7 % (37.0-47.0); HEMOGLOBIN 13.2 g/dL (12.0-16.0); LYMPH# 2.76 X1000 (1.2-3.4); LYMPH% 40.6 % (20.5-51.1); MCH 30.3 PG (27-31); MCHC 32.4 g/dL (33-37); MCV 93.6 FL (81-99); MONO# 0.66 X1000 (0.11-0.59); MONO% 9.7 % (1.7-9.3); MPV 9.4 FL (7.4-10.4); NEUT# 2.64 X1000 (1.4-6.5); NEUT% 38.8 % (42.2-75.2); PLT 278 X1000 (130-400); RBC 4.35 XMIL (4.2-5.4); RDW 13.4 % (11.5-14.5)
[2018-10-11] MEDS: ASPIRIN EC PO SCH (09:00)
[2018-10-11] MEDS ORDERED: APRESOLINE PO SCH (09:00)
[2018-10-11 09:01] LABS: ALBUMIN 3.7 g/dL (3.5-5.0); CALCIUM 9.4 mg/dL (8.8-10.2); CREATININE 4.3 mg/dL (0.5-0.9); PHOSPHORUS 4.9 mg/dL (2.7-4.5); POTASSIUM 4.2 mmol/L (3.5-5.1)
[2018-10-11] MEDS: PLAVIX PO SCH (09:01)
[2018-10-11] MEDS: VITAMIN B-12 PO SCH (09:01)
[2018-10-11] MEDS: NEURONTIN PO SCH (09:01)
[2018-10-11] MEDS: COREG PO SCH (09:02)
[2018-10-11] MEDS: NORVASC PO SCH (09:02)
--- NOTE | 2018-10-11 11:20 | PROGRESS NOTE ---
DATE: 10/11/2018 SUBJECTIVE: Patient reports feeling fine. No drainage from the left upper extremity fistula. Denies any fever, chills. OBJECTIVE: Vital Signs: Temperature 98.0 degrees, heart rate 75, respiratory 18, blood pressure 113/59, O2 saturation 97% on room air. General Examination: This is a 48-year-old female, lying in bed in no acute distress. Cardiovascular exam: S1, S2 heard. No murmurs, gallops, or rubs. Regular rate and rhythm. Respiratory exam: Clear bilaterally to auscultation. No work of breathing or using accessory muscles. Abdomen: Soft, nontender to palpation. Bowel sounds present. No organomegaly. Extremities: There is an AV fistula noted in the left upper extremity AC area. No drainage noted, but there is edema around it. Neurological exam: Patient alert and oriented x3. Moves 4 extremities. LABORATORY DATA: CBC is normal. The BMP shows creatinine 4.3, BUN 30. ASSESSMENT AND PLAN: 1. Infected arteriovenous fistula. For that reason, we are going to consult General Surgery. We will follow recommendations. 2. Chronic kidney disease stage V on hemodialysis. Patient is receiving dialysis throughout the vascular catheter. 3. Hypertension. Blood pressure is under control with the same management. DISPOSITION: At this point, also we are going to consult Infectious Disease to see for how long this patient will need antibiotics. As we mentioned before, we have consulted General Surgery to see if this patient will require any surgical approach regarding this problem. cc: Mervin Meraz MD
--- NOTE | 2018-10-11 12:42 | INFECTIOUS DISEASE CONSULT REP ---
DATE: 10/11/2018 CONCLUSION: The patient has an infected left upper extremity AV fistula. RECOMMENDATIONS: I agree with treating the patient with vancomycin and cefepime after each dialysis. I have obtained a culture from the patient's AV fistula. Hopefully, the patient will be able to be discharged today. I have asked Dr. Jones to order for the patient as an outpatient at the dialysis center for vancomycin 1 g and ceftazidime 1 g pending culture results. I obtained a culture from the patient's AV fistula site. Depending on the results of that culture, I may need to make some changes in the patient's antibiotic regimen. Also, I am going to inform Dr. Bay about the patient's condition to see if he has any other plans for treatment of the AV fistula. DISCUSSION: The patient tells me that approximately a week ago, her left arm, where she had an AV fistula put in by Dr. Bay, became swollen and erythematous, and started draining a yellow fluid. She has been admitted to the hospital here and the arm still is erythematous and reddish but it is not draining much at all. The patient has not had any fever. Blood cultures have been drawn on the patient and they are pending. Lab studies thus far show a CBC with a white count of 6800, hemoglobin 13.2, and platelet count 278,000. Creatinine is 4.3. GFR is 11. Liver function studies are normal. Blood cultures thus far are negative. PAST MEDICAL HISTORY/REVIEW OF SYSTEMS: Eyes and Ears: She does not have a problem seeing or hearing. Neck: No stiffness. Respiratory: No cough or shortness of breath. GI: No nausea, vomiting, or diarrhea. : No dysuria or flank pain. Endocrine: The patient has diabetes but not thyroid disease. Neurologic: No motor or sensory function loss. Integument: No rash. TRUCK AND TRANSPORT MECHANIC HISTORY: She is a 4, para 1, AB 3. She has had a tubal ligation. PREVIOUS HOSPITALIZATIONS AND OPERATIONS: She has had 3 miscarriages, a tubal ligation, a labor and delivery, a creation of an AV fistula in the left arm. She has, in the upper chest, an Pete split catheter. She has had coronary artery stenting. She has had admission for pneumonia with pleural effusion which required a tube inserted to drain the pleural effusion. MEDICAL DISEASES: Positive for end-stage renal disease, diabetes mellitus, hypertension, myocardial infarction, coronary artery disease, stroke, and hyperlipidemia. INFECTIOUS DISEASE HISTORY: Positive for pneumonia. FAMILY HISTORY: Positive for diabetes mellitus, hypertension, myocardial infarction, stroke, and end-stage renal disease. SOCIAL HISTORY[place] . She lives with her child and her sisters. There is a dog as a pet. She is on disability. ALLERGIES: She does not have any allergies. HOME MEDICATIONS: Include amlodipine, atorvastatin, carvedilol, Plavix, Neurontin, Apresoline, insulin, nitroglycerin, and Zofran. PHYSICAL EXAMINATION: Vital Signs: Temperature is 98 degrees, pulse 75, respirations 18, blood pressure 113/59. The patient is 5 feet 4 inches tall, weighs 218 pounds. General: This is a somewhat ill-appearing, obese, middle-aged female. She is in no acute distress. Head, Eyes, Ears, Nose, and Throat: The patient can hear my spoken words and see near objects. She does not have any white patches on her tongue. Neck: No stiffness. The patient has a right internal jugular vein catheter in place. The site is not erythematous or draining. Lungs: Clear to auscultation. Cardiovascular: Regular heart rate. Abdomen: Soft and nontender. Thorax: The patient has a right chest tunneled dialysis catheter in place. The site is not erythematous or purulent. Extremities: The patient's left upper arm has an AV fistula in it. The site is erythematous and with a small amount of clear drainage. Neurologic: The patient is alert. She can move her extremities. There is no tremor. Her sensation is intact to touch. Her memory as regarding her medical history appeared intact also. cc: Ayaan Chahal MD
[2018-10-11 13:14] VITALS: BP 133/75
--- NOTE | 2018-10-11 18:44 | NEPHROLOGY PROGRESS NOTE ---
DATE: 10/11/2018 SUBJECTIVE: She is still complaining of her arm hurting, but improved overall. She is hoping for discharge. No nausea or vomiting or other complaints. OBJECTIVE: Vital Signs: Blood pressure 133/75, heart rate 74, respirations 18, afebrile. General: She is in no acute distress. Skin: Warm and dry. Conjunctivae are pink. Heart: Regular. No gallops. Lungs: Equal. No crackles. Abdomen: Soft, nontender. Bowel sounds present. Extremities: No edema, clubbing, or cyanosis. Minimal erythema around her surgery sites. She still has fibrinous exudate in her areas of open wound on her access. No expressible purulence. IMPRESSION: 1. Chronic kidney disease 5D. She will continue her routine outpatient dialysis prescription. Electrolytes, acid-base, and anemia are all in target. 2. Cellulitis. Dr. Chahal has prescribed vancomycin and Fortaz for 2 additional weeks. We have arranged for this to be provided at the outpatient clinic. No other changes. cc: Aaron Jones MD
--- NOTE | 2018-10-12 09:07 | DISCHARGE SUMMARY ---
ADMISSION DATE: 10/10/2018 DISCHARGE DATE: 10/11/2018 ADMITTING DIAGNOSES: 1. Left upper arm extremity fistula, infection, with drainage. 2. End stage renal disease. 3. Diabetes mellitus type 2. 4. Hypertension. DISCHARGE DIAGNOSES: 1. Arteriovenous fistula infection, seen by Infectious Disease, who agrees with vancomycin and cefepime after each dialysis treatment. Culture was obtained from the AV fistula and can be discharged today. Dr. Chahal and Dr. Jones both spoke on the phone about receiving antibiotics at the dialysis center. Dr. Bay was informed about the plan and condition and to see if there were any other treatments he recommended. 2. Chronic kidney disease stage 5, end stage renal disease on dialysis. She will receive antibiotics after dialysis. 3. Hypertension. 4. Diabetes mellitus type 2. CONSULTATIONS: 1. Dr. Brito, but I believe it was Dr. Bay that Dr. Chahal spoke with. 2. Dr. Chahal. 3. Dr. Jones. PROCEDURES OR SURGERIES: None. HOSPITAL COURSE: On 10/10/2018, Ms. Hollie Avila, a 48-year-old female with end stage renal disease who receives dialysis on Monday, Monday and Monday, presented to the emergency department with several day history of noticing left upper arm extremity pain and drainage from her fistula. There was moderate amount that was visualized as draining from the fistula which looked infected and was admitted for further workup and antibiotic treatments. Dr. Chahal had her put on vancomycin and cefepime after each dialysis. A culture was obtained by Dr. Chahal from the site. So far, it is a pending culture because it was obtained today. But blood cultures are so far negative from 10/09/2018. The dialysis AV fistula has positive bruit and thrill. There is no issue with clotting. She was deemed appropriate for discharge home. DISCHARGE VITAL SIGNS: Temperature is 97.8, heart rate 74, respiratory rate 18, blood pressure 133/75, O2 saturation 95% on room air. DISCHARGE LAB DATA: White blood cells 6000, hemoglobin 13, hematocrit 40, platelet count 278. Sodium is 139, potassium 4.2, BUN is 40, creatinine is 4.3, glucose 141, calcium 9.4, phosphorus 4.9, albumin 3.7. IMAGING: No imaging. There were some telemetry strips which showed sinus rhythm. DISCHARGE MEDICATIONS: 1. Lipitor 80 mg p.o. nightly. 2. Amlodipine besylate 5 mg p.o. daily. 3. Apresoline 50 mg p.o. t.i.d. 4. Aspirin 81 mg p.o. daily. 5. Coreg 12.5 mg p.o. twice daily. 6. Neurontin 600 mg p.o. twice daily. 7. Nitroglycerin 0.4 mg sublingual as directed. 8. NPH 70/30 insulin 20 units subcutaneously twice daily. 9. Plavix 75 mg p.o. daily. 10.Vitamin B12 500 mg p.o. daily. 11.Zofran 4 mg p.o. every 6 hours p.r.n. 12.Per Dr. Chahal, there will be vancomycin and cefepime given after each dialysis until culture of the site comes back with type of bacteria and sensitivities. DISCHARGE FOLLOWUP: Dr. Chahal. Also will need to be Dr. Bay and Dr. Jones. She can follow up with her primary care provider, Renetta Bianchi, as well. DISCHARGE INSTRUCTIONS: Keep fistula site clean and dry. If any other advanced forms of infection like increased swelling or more pain, to contact Dr. Jones, Dr. Chahal, any fever or chills. DISCHARGE DISPOSITION: Home. Dictated by RAFAELA Baumann for Mervin Meraz MD Addendum: Patient seen and examined by myself. Agree with RAFAELA note. It reflects my assessment and plan. Patient is being discharged in stable condition to home and will be seen by her primary care doctor in a week. cc: RAFAELA Baumann MD [facility]
--- NOTE | 2018-10-14 07:48 | INFECTIOUS DISEASE PROGRESS NO ---
DATE: 10/14/2018 The patient's culture from her infected AV fistula grew Pantoea. The patient's antibiotics that she is receiving after dialysis should cover this organism. cc: Ayaan Chahal MD
== END 2018-10-11 17:17 | disposition home or self-care (01) | DRG 314 ==
LOC: ED 19:51 → SUATTDRO 10-10 01:20 → 3N 10-10 01:20
PROVIDERS: ATTEND Internal Medicine
CPT/HCPCS: 80053; 80069; 82948; 83605; 85025; 87040; 87070; 87077; 96365; 96375; 99285; A9270; J0713; J1644; J2270; J3370; J7030; XXXXX

== ENCOUNTER 2019-06-12 12:25 | Inpatient (IN) ==
--- NOTE | 2019-06-12 12:52 | EKG Report ---
Test Performed on : 06/12/2019 12:30:26 PM Test Reason : sob Blood Pressure : / mmHG Vent. Rate : 065 BPM Atrial Rate : 065 BPM P-R Int : 156 ms QRS Dur : 090 ms QT Int : 396 ms P-R-T Axes : 037 -19 160 degrees QTc Int : 411 ms Normal sinus rhythm. Cannot rule out Inferior infarct , age undetermined ST & T wave abnormality, consider anterolateral ischemia Abnormal ECG When compared with ECG of 09-JAN-2019 10:02, T wave inversion now evident in Anterior leads Unconfirmed Result
--- NOTE | 2019-06-12 13:31 | Diag Imaging Result Doc PS360 ---
CHEST-1 VIEW - 06/12/2019 INDICATION: sob COMPARISON: 03/16/2018 FINDINGS: There is a left-sided dialysis catheter in good position with the distal tip at the right atrium. There are new sternotomy wires. There is significant cardiomegaly and pulmonary vascular congestion. There is dense infiltrate in the right midlung and lung base. No pneumothorax or significant pleural effusion. IMPRESSION: Cardiomegaly and pulmonary vascular congestion. Infiltrates in the right midlung and base concerning for pneumonia. Electronically signed by Paulo Krishnan 06/12/2019 1:29 PM
[2019-06-12 13:41] LABS: BASO# 0.07 X1000 (0.0-0.2); BASO% 0.4 % (0.0-0.8); EOS# 0.61 X1000 (0.0-0.7); EOS% 3.6 % (0.0-10.0); HEMATOCRIT 27.2 % (37.0-47.0); HEMOGLOBIN 8.3 g/dL (12.0-16.0); IMM GRAN% 0.6 % (0.0-0.5); LYMPH# 2.06 X1000 (1.2-3.4); MCH 29.4 PG (27-31); MCHC 30.5 g/dL (33-37); MCV 96.5 FL (81-99); MONO# 1.36 X1000 (0.11-0.59); MPV 9.2 FL (7.4-10.4); NEUT% 75.4 % (42.2-75.2); PLT 337 X1000 (130-400); RBC 2.82 XMIL (4.2-5.4); RDW 15.8 % (11.5-14.5)
[2019-06-12 13:47] LABS: INR 1.1; PROTIME 14.4 Seconds (11.0-16.0)
[2019-06-12 13:48] LABS: PTT 61.1 Seconds (22.3-41.8)
[2019-06-12 15:17] LABS: ALB/GLOB RATIO 0.8; CREATININE 6.7 mg/dL (0.5-0.9); POTASSIUM 4.1 mmol/L (3.5-5.1); TOTAL BILIRUBIN 0.37 mg/dL (0.20-1.00); TOTAL PROTEIN 6.6 g/dL (6.3-8.3)
[2019-06-12] MEDS ORDERED: NS 0 ML ONE (15:36)
[2019-06-12] MEDS ORDERED: ZOSYN 3.375 GM in NS 50 ML IV ONE (17:21)
[2019-06-12] MEDS ORDERED: DILAUDID IV ONE (18:11)
[2019-06-12] MEDS ORDERED: ZOFRAN IV ONE (18:11)
[2019-06-12 18:56] LABS: URINE SOURCE CLEAN CATCH
--- NOTE | 2019-06-12 18:56 | PROVIDER DOCUMENTATION ---
This chart was entered by Jasmyne Ramos Scribe, acting as scribe for Robert Licona MD. HPI-Chest Pain - General Chief Complaint: Chest Pain Stated Complaint: CP Time Seen by Provider: 06/12/19 12:43 Source: patient Allergies/Adverse Reactions: Patient Allergies Allergy/AdvReac Type Severity Reaction Status Date / Time No Known Allergies Allergy Verified 01/23/19 12:59 Home Medications: Home Medication List Medication Instructions Recorded Confirmed Last Taken Type Carvedilol 12.5 mg PO BID 02/27/13 04/09/19 01/10/19 08:00 History Atorvastatin Calcium [Lipitor] 80 mg PO QHS 11/18/15 04/09/19 01/09/19 21:00 History Aspirin [Aspir-Low] 81 mg PO DAILY 05/06/17 04/09/19 01/03/19 21:00 History Clopidogrel [Plavix] 75 mg PO DAILY 05/06/17 04/09/19 04/04/19 History Hydralazine [Apresoline] 50 mg PO TID 05/06/17 04/09/19 01/10/19 08:00 History Nitroglycerin 0.4 mg SL DIRECTED 08/23/17 04/09/19 Unknown History Amlodipine Besylate 5 mg PO DAILY 02/01/18 04/09/19 01/10/19 08:00 History Insulin Regular, Human [Novolin R] 1 dose SQ DIRECTED PRN 02/01/18 04/09/19 10/09/18 History Gabapentin [Neurontin] 800 mg PO BID 07/31/18 04/09/19 01/09/19 21:00 History Insulin NPH Hum/Reg Insulin Hm 20 unit SQ BID 07/31/18 04/09/19 01/09/19 18:30 History [Novolin 70-30 100 Unit/ml Vial] Ondansetron [Zofran] 4 mg PO Q6H PRN PRN 07/31/18 04/09/19 01/09/19 20:30 History Hydrocodone/APAP 7.5 mg/325 mg 1 ea PO Q6H PRN PRN #10 tab 01/23/19 04/09/19 Unknown Rx [[place]-7.5] - History of Present Illness-CP Nature of Presenting Problem: Patient is a 48 year old female who presents with chest pain. States chest pain started this morning. Reports having open heart surgery 2 weeks ago in [place] by Dr. Oleary. Denies shortness of breath. Location: reports: central Chest Pain Radiation: reports: no radiation Quality of Pain: reports: aching Severity in ED: mild Onset/Duration: this morning Timing: still present Context/Activities at Onset: reports: light activity Modifying Factors: worse with: coughing Associated Symptoms: reports: denies symptoms Prior Chest Pain/Cardiac Workup: reports: other (open heart surgery 2 weeks ago) Similar Symptoms Previously?: Yes Recently Seen Here or By Another Healthcare Provider: Yes Review of Systems - Adult - REVIEW OF SYSTEMS - ADULT ROS:: limited per condition Constitutional: reports: no symptoms reported Eyes: reports: no symptoms reported Ears, Nose, Mouth & Throat: reports: no symptoms reported Cardiovascular: reports: see HPI, chest pain. denies: irregular heart rate, palpitations Respiratory: reports: no symptoms reported. denies: cough, shortness of breath, wheezing Gastrointestinal: reports: no symptoms reported. denies: abdominal pain, nausea, vomiting Genitourinary: reports: no symptoms reported Musculoskeletal: reports: no symptoms reported Integumentary: reports: no symptoms reported Neurological: reports: no symptoms reported Psychiatric: reports: no symptoms reported Endocrine: reports: no symptoms reported Hematologic/Lymphatic: reports: no symptoms reported Allergic/Immunologic: reports: no symptoms reported All Other Systems: Reviewed and Negative Past History - Adult - PAST MEDICAL HISTORY-ADULT Review of Records: reports: Old Records Reviewed, Nursing Assessment Review, Medications Reviewed, Social history reviewed & non-contributory. Major Childhood Illnesses: reports: denies history Cardiovascular: reports: CAD, CHF, HTN, hyperlipidemia Respiratory: reports: denies history Gastrointestinal: reports: denies history Obstetrical/Gynecological: reports: denies history Genitourinary: reports: dialysis, kidney disease Musculoskeletal: reports: denies history Neurological: reports: CVA Psychiatric: reports: denies history Endocrine/Immune: reports: Diabetes Other Conditions: reports: denies history - PRIOR SURGERIES/PROCEDURES Surgical/Procedure History: reports: reviewed, not pertinent, CABG, cardiac stent, BTL - IMMUNIZATION STATUS Childhood Immunizations: See Nurse Assessment Flu Vaccine: See Nurse Assessment - FAMILY HISTORY Family History: reviewed, not pertinent - SOCIAL HISTORY Smoking: cigarettes (former) Substance Use: denies Physical Exam-General - PHYSICAL EXAM-ADULT Initial Vital Signs Reviewed: Yes - CONSTITUTIONAL General Appearance: alert, no apparent distress. negative: lethargic - RESPIRATORY Respiratory: lungs clear, normal breath sounds, other (well healing mid line post op site to mid chest). negative: crackles, wheezing - CARDIOVASCULAR Cardiovascular: normal peripheral pulses, regular rate, rhythm. negative: tachycardia - GASTROINTESTINAL (ABDOMEN) Abdominal Exam: normal bowel sounds, non tender, soft. negative: rigid - MUSCULOSKELETAL Extremity: normal inspection. negative: deformity, erythema - SKIN Integumentary: normal color, normal turgor, warm/dry. negative: diaphoresis - NEUROLOGIC Neurologic: grossly normal. negative: aphasia, facial droop - PSYCHIATRIC Psych/Mental Status: normal mood/affect, oriented x 3. negative: anxious - HEART Score HEART Score: History: Moderately Suspicious HEART Score: ECG: Non-Specific Repolarization Disturbance/LBBB/PM HEART Score: Age: 45-65 Years HEART Score: Risk Factors for Atherosclerotic Disease: > or = 3 Risk Factors or History of Atherosclerotic Disease HEART Score: Troponin: 1-3x Normal Limit Total HEART Score:: 6 Progress - PLAN OF CARE/RESULTS Progress/Plan/Lab Results: Vital Signs - 8 hr 06/12/19 12:36 06/12/19 13:45 06/12/19 16:50 Temperature 98.5 F 97.8 F Pulse Rate 69 64 58 L Respiratory Rate 15 21 18 Blood Pressure 111/73 125/64 112/78 O2 Sat by Pulse Oximetry 95 95 99 Laboratory Results - last 24 hr 06/12/19 06/12/19 06/12/19 13:10 13:10 13:10 WBC 17.10 H RBC 2.82 L Hgb 8.3 L Hct 27.2 L MCV 96.5 MCH 29.4 MCHC 30.5 L RDW Std Deviation 15.8 H Plt Count 337 MPV 9.2 Immature Gran % (Auto) 0.6 H Neut % (Auto) 75.4 H Lymph % (Auto) 12.0 L Nolan % (Auto) 8.0 Eos % (Auto) 3.6 Baso % (Auto) 0.4 Immature Gran # (Auto) 0.10 H Neut # (Auto) 12.90 H Lymph # (Auto) 2.06 Nolan # (Auto) 1.36 H Eos # (Auto) 0.61 Baso # (Auto) 0.07 PT 14.4 INR 1.10 PTT (Actin FS) 61.1 H Sodium Potassium Chloride Carbon Dioxide Anion Gap BUN Creatinine Estimated GFR/1.73 m2 BUN/Creatinine Ratio Glucose Calculated Osmolality Calcium Total Bilirubin AST ALT Alkaline Phosphatase Creatine Kinase Troponin T Dad-D[place]Adsymuocfnw Pept 23592 H Total Protein Albumin Globulin Albumin/Globulin Ratio Plasma Lactate 06/12/19 06/12/19 06/12/19 13:10 14:38 14:38 WBC RBC Hgb Hct MCV MCH MCHC RDW Std Deviation Plt Count MPV Immature Gran % (Auto) Neut % (Auto) Lymph % (Auto) Nolan % (Auto) Eos % (Auto) Baso % (Auto) Immature Gran # (Auto) Neut # (Auto) Lymph # (Auto) Nolan # (Auto) Eos # (Auto) Baso # (Auto) PT INR PTT (Actin FS) Sodium 133 L Potassium 4.1 Chloride 95 L Carbon Dioxide 24 L Anion Gap 14 BUN 32 H Creatinine 6.7 H Estimated GFR/1.73 m2 7 BUN/Creatinine Ratio 5 Glucose 67 L Calculated Osmolality 272 Calcium 8.0 L Total Bilirubin 0.37 AST 13 ALT 5 L Alkaline Phosphatase 264 H Creatine Kinase 62 Troponin T 0.189 H Sfr-C-Ojdweitnbmb Pept Total Protein 6.6 Albumin 3.0 L Globulin 3.6 Albumin/Globulin Ratio 0.8 Plasma Lactate 06/12/19 06/12/19 15:48 18:12 WBC RBC Hgb Hct MCV MCH MCHC RDW Std Deviation Plt Count MPV Immature Gran % (Auto) Neut % (Auto) Lymph % (Auto) Nolan % (Auto) Eos % (Auto) Baso % (Auto) Immature Gran # (Auto) Neut # (Auto) Lymph # (Auto) Nolan # (Auto) Eos # (Auto) Baso # (Auto) PT INR PTT (Actin FS) Sodium Potassium Chloride Carbon Dioxide Anion Gap BUN Creatinine Estimated GFR/1.73 m2 BUN/Creatinine Ratio Glucose Calculated Osmolality Calcium Total Bilirubin AST ALT Alkaline Phosphatase Creatine Kinase Troponin T Deu-Q-Sukxomosuwl Pept Total Protein Albumin Globulin Albumin/Globulin Ratio Plasma Lactate 0.6 0.8 Orders Category Date Time Status Notify MD of + Sepsis Screen NOW Care 06/12/19 14:46 Active PICC Line Consult Routine Cons 06/12/19 15:27 Active CHEST-1 VIEW [RAD] Stat Exams 06/12/19 12:45 Completed BLOOD CULTURE [BLDCUL] Stat Lab 06/12/19 16:38 Results CBC WITH ELECTRONIC DIFF [HEME] Stat Lab 06/12/19 13:10 Completed CK PROFILE [SP CHEM] Stat Lab 06/12/19 14:38 Completed CMP [COMPREHENSIVE METABOLIC PANEL] [CHEM] Stat Lab 06/12/19 14:38 Completed LACTATE, PLASMA [CHEM] Q3H Lab 06/12/19 15:48 Completed LACTATE, PLASMA [CHEM] Q3H Lab 06/12/19 18:12 Completed PRO B-NATRIURETIC PEPTIDE Stat Lab 06/12/19 13:10 Completed PT [PROTIME WITH INR] [COAG] Stat Lab 06/12/19 13:10 Completed PTT [COAG] Stat Lab 06/12/19 13:10 Completed TROPONIN T Stat Lab 06/12/19 13:10 Completed URINALYSIS W/POSS RFLX CULT [URINALYSIS] Stat Lab 06/12/19 18:43 Ordered 0.9% Sodium Chloride Inj [Ns] 250 ml Med 06/12/19 15:36 Discontinued .ROUTE As directed Hydromorphone [Dilaudid] Med 06/12/19 18:11 Discontinued 0.5 mg IV NOW ONE Ondansetron [Zofran] Med 06/12/19 18:11 Discontinued 4 mg IV NOW ONE Piperacillin/Tazobactam [Zosyn] 3.375 gm Med 06/12/19 17:21 Discontinued 0.9% Sodium Chloride Inj [Ns] 50 ml IV NOW EKG [EKG] Stat Ther 06/12/19 12:45 Draft Result Diagrams: 06/12/19 13:10 06/12/19 14:38 - EKG 1 Time of EKG reading by physician:: 12:30 EKG Read and Signed by:: Robert Licona EKG Interpretation (*Must complete 3 of following elements*): Abnormal (ST & T wave abnormality, consider anterolateral ischemia) Rate: 65 Rhythm: normal sinus rhythm [place]: normal [place] Interval: normal Comments: cannot rule out inferior infarct, age undetermined; - XRAY 1 XRAY Study: Chest Impression: See EMR Report ( CHEST-1 VIEW - 06/12/2019 INDICATION: sob COMPARISON: 03/16/2018 FINDINGS: There is a left-sided dialysis catheter in good position with the distal tip at the right atrium. There are new sternotomy wires. There is significant cardiomegaly and pulmonary vascular congestion. There is dense infiltrate in the right midlung and lung base. No pneumothorax or significant pleural effusion. IMPRESSION: Cardiomegaly and pulmonary vascular congestion. Infiltrates in the right midlung and base concerning for pneumonia. Electronically signed by Paulo Krishnan 06/12/2019 1:29 PM 06/12/19 1329 Interpreting Physician: Paulo Krishnan MD Dictated Date/Time: 06/12/19 1328 cc: Robert Licona MD; Renetta Bianchi) - CONSULTS/PCP/HOSPITALIST Notification #1 *Consult/PCP/Hospitalist*: Dr. Jones Time Discussed: 15:48 Reason/Comments: Dr. Licona consulted with Dr. Jones about the patient Consult Disposition: other (Dr. Licona consulted with Dr. Jones about patient getting a PICC line.) #2 Consult: RAFAELA Ontiveros for Hospitalist Time Discussed: 18:07 Reason/Comments: Dr. Licona consulted with Rama about patient. Consult Disposition: Will see in ED, Admit Departure - Departure Date of Disposition Decision: 06/12/19 Time of Disposition Decision: 18:07 DIAGNOSIS: Pneumonia, ESRD (end stage renal disease) on dialysis, CHF (congestive heart failure) Disposition: ADMITTED INPATIENT 09 Certified Medical Emergency: Emergent Condition: Fair Referrals and Follow-Ups: Renetta Bianchi [Primary Care Provider] - - Critical Care Note This patient required my direct & personal management of CC.: No Attestation - Physician/ ISHAAN Attestation Patient care was provided by Advanced Practice Provider:: No The physician spent face to face time with patient:: Yes Advanced Practice Provider documentation review:: Supervising physician onsite and consulted in the evaluation and care of this patient. The physician did have a face to face encounter with the patient. This chart was documented by the indicated scribe, (Jasmyne Ramos Scribe) and accurately reflects the services I performed and decisions made by me, Robert Licona MD, as attested by the provider's signature.
[2019-06-12 19:04] LABS: BILIRUBIN URINE NEGATIVE (NEGATIVE); BLOOD URINE SMALL (NEGATIVE); COLOR YELLOW; GLUCOSE URINE NEGATIVE (NEGATIVE); KETONE URINE NEGATIVE (NEGATIVE); LEUKOCYTES URINE NEGATIVE (NEGATIVE); NITRITE URINE NEGATIVE (NEGATIVE); PH URINE 5.5; PROTEIN URINE 200 mg/dL (NEGATIVE); SP GRAVITY URINE 1.021; TURBIDITY URINE HAZY (CLEAR); UROBILINOGEN URINE NORMAL (NORMAL)
[2019-06-12 19:05] LABS: UR EPITHELIAL CELLS <10 /HPF (<10); URINE BACTERIA NEGATIVE /HPF; URINE RBC <10 /HPF (<10); URINE WBC <10 /HPF (<10)
[2019-06-12] MEDS: DILAUDID IV PRN (23:48)
[2019-06-13 00:07] LABS: HEMOGLOBIN A1C 7.6 % (4.8-6.0)
[2019-06-13] MEDS: HUMALOG SUBQ SCH ×5 (00:07→20:42)
[2019-06-13] MEDS: HEPARIN SUBQ SCH ×3 (00:11→16:04)
[2019-06-13] MEDS: ZYVOX 600 MG/D5W 600 MG/300 ML IVPB IV SCH ×3 (00:11→16:04)
[2019-06-13] MEDS: DUONEB (A & A) INH SCH ×4 (00:28→22:30)
[2019-06-13] MEDS ORDERED: MUCINEX PO PRN (05:46)
[2019-06-13] MEDS ORDERED: PEPCID PO SCH (06:00)
[2019-06-13 06:05] LABS: BASO# 0.09 X1000 (0.0-0.2); BASO% 0.7 % (0.0-0.8); EOS# 0.63 X1000 (0.0-0.7); EOS% 5.1 % (0.0-10.0); HEMATOCRIT 30.1 % (37.0-47.0); HEMOGLOBIN 9.2 g/dL (12.0-16.0); IMM GRAN# 0.08 X1000 (0.0-0.04); IMM GRAN% 0.7 % (0.0-0.5); LYMPH# 1.57 X1000 (1.2-3.4); LYMPH% 12.8 % (20.5-51.1); MCH 29.6 PG (27-31); MCHC 30.6 g/dL (33-37); MCV 96.8 FL (81-99); MONO% 9.8 % (1.7-9.3); NEUT# 8.69 X1000 (1.4-6.5); NEUT% 70.9 % (42.2-75.2); PLT 306 X1000 (130-400); RBC 3.11 XMIL (4.2-5.4); RDW 15.6 % (11.5-14.5); WBC 12.26 X1000 (4.8-10.8)
[2019-06-13] MEDS: DILAUDID IV PRN ×3 (06:10→23:11)
[2019-06-13 06:23] LABS: CREATININE 7.3 mg/dL (0.5-0.9); POTASSIUM 4.4 mmol/L (3.5-5.1)
--- NOTE | 2019-06-13 06:45 | HISTORY AND PHYSICAL ---
CHIEF COMPLAINT: Chest pain. HISTORY OF PRESENT ILLNESS: This is a 48-year-old female with a history of end- stage renal disease with Monday, Monday, Monday hemodialysis, hypertension, diabetes mellitus type 2, coronary artery disease who was 2 weeks status post open heart surgery at [facility] by Dr. Oleary. She stated she started having chest pain this morning. Said it did not radiate. She did have some shortness of breath but not diaphoretic with the chest pain. She denied any nausea or vomiting. A chest x-ray was obtained in the emergency room that showed significant pulmonary vascular congestion. The patient also has cardiomegaly. There was also a dense infiltrate in the right mid lung and lung base. She will be admitted and treated for hospital acquired pneumonia. PAST MEDICAL HISTORY: See HPI. Diabetes, congestive heart failure. PREVIOUS SURGICAL HISTORY: 1. Coronary stenting. 2. Left upper arm fistula. 3. Dialysis catheter placement. 4. Coronary artery bypass graft. ALLERGIES: No known drug allergies. HOME MEDICATIONS: 1. Amlodipine 5 mg p.o. daily. 2. Aspirin 325 mg p.o. daily. 3. Lipitor 80 mg p.o. at bedtime. 4. Carvedilol 12.5 mg p.o. b.i.d. 5. Famotidine 20 mg p.o. daily. 6. Neurontin 300 mg p.o. t.i.d. 7. Mucinex 600 mg p.o. b.i.d. 8. Hydralazine 25 mg p.o. t.i.d. 9. Humulin 70/30 12 units subcu q.a.m. 10.Humulin R 15 units per protocol daily. 11.Zofran 4 mg p.o. q.6 p.r.n. 12.Percocet 5 q.6 p.r.n. SOCIAL HISTORY: 30 year history of smoking. Alcohol socially. Denies illicit drugs. FAMILY HISTORY: Positive for coronary artery disease in her mother and father. REVIEW OF SYSTEMS: Fourteen point review of systems conducted with the patient and pertinent positives listed above in the HPI. All other systems reviewed and found to be negative. PHYSICAL EXAMINATION: VITAL SIGNS: Temperature 97.9 degrees, pulse 61, respirations 18, blood pressure 123/54, oxygen saturation 94% on 2 liters nasal cannula. GENERAL: Pleasant 48-year-old female lying in the ER stretcher. Answers all questions appropriately. She is alert and oriented x3, in no acute distress. HEENT: Head is atraumatic, normocephalic. Pupils equal, round and reactive to light. Extraocular eye movement is intact. Sclerae anicteric. Conjunctivae pale. Oral mucosa is moist. NECK: Supple. No JVD. No thyromegaly. Trachea is midline. No cervical lymphadenopathy. CARDIAC: S1, S2 appreciated. No murmurs, gallops, rubs. LUNGS: Decreased bilaterally. Crepitations noted throughout bilateral bases. Right lung is more coarse than left. Symmetrical rise and fall of respirations. ABDOMEN: Soft, nondistended, nontender. Bowel sounds present all 4 quadrants. CHEST: Midline scar, clean, dry and intact, healing well. EXTREMITIES: No clubbing, cyanosis. 1+ edema bilateral lower extremities. NEUROLOGICAL: Alert and oriented x3. Cranial nerves 2-12 grossly intact. ASSESSMENT AND PLAN: 1. Right mid and lower lobe pneumonia. 2. End-stage renal disease with hemodialysis Monday, Monday, Monday. 3. CHF with exacerbation. 4. Diabetes mellitus type 2, now insulin dependent. 5. Hypertension. PLAN: We will cover patient with IV Zyvox and Zosyn. We have Dilaudid as needed for pain. Trend cardiac enzymes. Check a sputum culture and blood cultures are pending. Continue her antihypertensives from her home medication. We will also continue her atorvastatin for her hyperlipidemia. Consult Dr. Jones for hemodialysis and assistance with antibiotic dosing. Further recommendation per patient's clinical course. Dictated by RAFAELA Dickens for Goldy Leija MD cc: RAFAELA Dickens MD 48 y/o patient with h/o CHF, ESRD, Hypertension. Presenting with chest pain. CXR positive for PVC, cardiolmegaly and dense infiltrate in right mid and lung base.. I agree with the assessment and plan of the RAFAELA. Dr. Leija. [facility]
[2019-06-13] MEDS: COREG PO SCH ×2 (08:23→20:42)
[2019-06-13] MEDS: ASPIRIN PO SCH (08:23)
[2019-06-13] MEDS: NORVASC PO SCH (08:23)
[2019-06-13] MEDS: NEURONTIN PO SCH ×3 (08:23→16:04)
[2019-06-13] MEDS: APRESOLINE PO SCH ×3 (08:23→17:02)
[2019-06-13] MEDS ORDERED: HEPARIN IV PRN (08:33)
[2019-06-13] MEDS ORDERED: NS 2,000 ML MISC PRN (08:33)
--- NOTE | 2019-06-13 11:43 | PROGRESS NOTE ---
DATE: 06/13/2019 Ms. Avila was admitted yesterday. A 48-year-old followed by Dr. Renetta Bianchi. Has a history of end-stage renal disease. Gets dialysis Mondays, Wednesdays, and Monday. History of hypertension, history of diabetes mellitus type 2, coronary artery disease. She is 2 weeks status post heart surgery in [place] per Dr. Oleary. Started having chest pain. Said it did not radiate. She did have some shortness of breath but was not diaphoretic and no chest pain. Denied any nausea or vomiting. Went to the emergency room. Showed significant pulmonary vascular congestion and dense infiltrates in the right mid lung, so was admitted. I saw her in dialysis. She was breathing more comfortably. OBJECTIVE: She remains afebrile, temperature is 97.9 degrees, pulse 70, respirations 17, blood pressure 129/67. Pupils are equal and round. Lungs are clear in all lung mccoy. Cardiovascular Examination: Regular rhythm and rate without murmur or S3. Urine output was 480 mL. White count had come down from when they originally checked at 17,000 to 12,000. ASSESSMENT/PLAN: 1. Right mid and lower lobe questionable infiltrate. Treating her for pneumonia. Could be predominantly pulmonary venous hypertension. 2. End-stage renal disease, on hemodialysis Mondays, Wednesdays, and Monday. Undergoing dialysis today, which is Monday. 3. Congestive heart failure with exacerbation. 4. Diabetes mellitus type 2, on insulin. Follow pattern of sugars. 5. Hypertension. The patient is on Zyvox and Zosyn. She seems to be breathing better. REVIEW OF HER ORDERS: She gets Lipitor 80 mg a day. Getting Dilaudid 0.5 mg IV q.3 hours p.r.n., Norvasc 5 mg a day, aspirin 325 mg a day, Pepcid 20 mg a day, hydralazine 25 mg t.i.d., and linezolid 600 mg IV q.12. cc: Moise Middleton MD
[2019-06-13] MEDS: LIPITOR PO SCH (20:42)
[2019-06-14] MEDS: HEPARIN SUBQ SCH ×4 (00:05→22:43)
[2019-06-14] MEDS: TYLENOL PO PRN (00:05)
[2019-06-14] MEDS: DUONEB (A & A) INH SCH ×4 (03:46→21:46)
[2019-06-14] MEDS: DILAUDID IV PRN ×5 (04:16→22:20)
[2019-06-14] MEDS: ZYVOX 600 MG/D5W 600 MG/300 ML IVPB IV SCH ×2 (04:16→16:44)
[2019-06-14] MEDS: HUMALOG SUBQ SCH ×4 (06:04→20:22)
[2019-06-14] MEDS ORDERED: TIGHT: 0.2 ML/HR FOR DIALYSIS MISC PRN (09:04)
[2019-06-14] MEDS ORDERED: NS 2,000 ML MISC PRN (09:04)
[2019-06-14] MEDS ORDERED: HEPARIN IV PRN (09:04)
[2019-06-14] MEDS: COREG PO SCH ×2 (09:58→20:23)
[2019-06-14] MEDS: APRESOLINE PO SCH ×3 (09:58→17:00)
[2019-06-14] MEDS: NEURONTIN PO SCH ×3 (09:58→16:44)
[2019-06-14] MEDS: NORVASC PO SCH (13:21)
[2019-06-14] MEDS: ASPIRIN PO SCH (13:21)
--- NOTE | 2019-06-14 15:49 | NEPHROLOGY CONSULTATION ---
DATE: 06/14/2019 REASON FOR CONSULTATION: ESRD with hemodialysis, antibiotic management. HISTORY OF PRESENT ILLNESS: Ms Avila is a 48-year-old white female who recently had coronary artery bypass grafting. She has recently returned to our outpatient dialysis clinic. She was receiving her first outpatient treatment on Monday when she described chest pain immediately after going on to the dialysis machine and asked to be taken off so that she could present to the hospital. She stayed for only about 45 minutes of her treatment before leaving. The pain did not radiate. It was not associated with nausea, vomiting, or diaphoresis. She did have some shortness of breath. She was admitted to the hospital on the evening of the and treated with ICU observation, linezolid, and home medications. She received dialysis again on the morning of , 06/13/2019. Some confusion overnight, but today she is awake and alert and appropriate. She does not really remember the events of the night. No chills, fevers, sweats, night sweats etc. PAST MEDICAL HISTORY: CKD 5d, coronary artery bypass grafting, diabetes, hypertension, hyperlipidemia, and peripheral vascular disease. HOME MEDICATIONS: Include amlodipine, aspirin, Lipitor, carvedilol, famotidine, Neurontin, hydralazine, insulin, Zofran, and Percocet. ALLERGIES: None. SOCIAL HISTORY: Former smoker. In fact, continues to smoke. Occasional alcohol. FAMILY HISTORY: Positive for heart disease. REVIEW OF SYSTEMS: Noncontributory. PHYSICAL EXAMINATION: Vital Signs: Blood pressure 123/58, heart rate 68, respirations 6. Afebrile temperature maximum 100.1 degrees. General: Awake, alert, and appropriate, in no acute distress. Skin: Warm and dry. HEENT: Conjunctivae are pink. Pupils are equal. Oropharynx is dry. Normal tongue. Normal teeth. Neck: Supple. Trachea is midline. Neck vein distention is not present. Heart: PMI is nondisplaced. Midline sternotomy incision is well apposed well with no erythema, nontender. Regular rate and rhythm without murmurs, rubs, gallops. Lungs: Have equal excursion, equal breath sounds. Decreased in the bases. No crackles or wheezes. Abdomen: Soft. Obese. Nontender. Bowel sounds present. No masses or organomegaly. Extremities: With trace edema. No clubbing or cyanosis. IMPRESSION: 1. Chest pain. Resolved. Post bypass grafting. Her initial chest x-ray suggested possible right lung pneumonia. She is being treated with linezolid alone. She did have a low-grade fever. That has subsequently resolved. If no improvement then she may need the addition of coverage for hospital-acquired pneumonia with Zosyn or Merrem. 2. Chronic kidney disease 5d. She will have her next routine dialysis treatment tomorrow. 3. Coronary artery disease. Appreciate Cardiology. 4. Electrolytes/acid base in target. 5. Anemia. Below target but does not meet criteria for transfusion. cc: Aaron Jones MD
--- NOTE | 2019-06-14 16:45 | PROGRESS NOTE ---
DATE: 06/14/2019 SUBJECTIVE: Today Ms. Avila referred to be doing slightly okay. Still has some chest pains. OBJECTIVE: Vital signs: Blood pressure is 113/57, pulse of 69, respirations 16, temperature is 99 degrees. General: Ms. Avila is a 48-year-old female. She is in bed. No distress. HEENT: Mucosa is pink and moist. Anicteric. Acyanotic. Neck: Supple. Chest: Good air entry bilateral. No crepitations. Cardiovascular: Regular rate and rhythm. Abdomen: Soft. There is a recent surgical incision on the mid anterior chest wall from sternotomy. Soft. Bowel sounds present. Extremities: No pedal edema. Distal pulses are present but remarkably low. LABORATORY DATA: No lab work for this morning. IMAGING STUDIES: Which was done yesterday shows cardiomegaly and pulmonary vascular congestion. Infiltrate in the right mid lung and base concerning for pneumonia. ASSESSMENT: 1. Right mid and lower lobe infiltrate concerning for pneumonia. Patient is currently on antibiotics, Zyvox. We have added cefepime to it. 2. End-stage renal disease, on hemodialysis. The patient has a tunneled catheter on the left into the left internal jugular. 3. History of congestive heart failure. 4. Diabetes mellitus type 2. 5. Hypertension, controlled. 6. History of coronary artery disease, status post coronary artery bypass graft just about three weeks ago. 7. Previous smoker. 8. Atherosclerotic disease noted. Patient is currently on Lipitor. cc: Morro Munguia MD
[2019-06-14] MEDS: MAXIPIME 1 GM in NS 50 ML IV SCH (18:00)
[2019-06-14] MEDS: LIPITOR PO SCH (20:23)
[2019-06-15] MEDS: DILAUDID IV PRN ×4 (02:48→14:31)
[2019-06-15] MEDS: ZYVOX 600 MG/D5W 600 MG/300 ML IVPB IV SCH ×2 (04:35→15:45)
[2019-06-15] MEDS: MAXIPIME 1 GM in NS 50 ML IV SCH ×3 (04:35→16:52)
[2019-06-15] MEDS: DUONEB (A & A) INH SCH ×5 (06:06→21:08)
[2019-06-15] MEDS: HUMALOG SUBQ SCH ×4 (06:11→20:36)
[2019-06-15 06:24] LABS: HEMATOCRIT 29.6 % (37.0-47.0); HEMOGLOBIN 8.9 g/dL (12.0-16.0); MCHC 30.1 g/dL (33-37); MCV 96.4 FL (81-99); RBC 3.07 XMIL (4.2-5.4); RDW 15.3 % (11.5-14.5); WBC 8.79 X1000 (4.8-10.8)
[2019-06-15 06:57] LABS: ALBUMIN 2.9 g/dL (3.5-5.0); CALCIUM 8.1 mg/dL (8.8-10.2); PHOSPHORUS 4.7 mg/dL (2.7-4.5); POTASSIUM 4.1 mmol/L (3.5-5.1)
[2019-06-15] MEDS: COREG PO SCH ×2 (08:19→20:36)
[2019-06-15] MEDS: NEURONTIN PO SCH ×3 (08:19→16:50)
[2019-06-15] MEDS: HEPARIN SUBQ SCH ×2 (08:19→15:46)
[2019-06-15] MEDS: NORVASC PO SCH (08:19)
[2019-06-15] MEDS: ASPIRIN PO SCH (08:19)
[2019-06-15] MEDS: APRESOLINE PO SCH ×3 (08:23→16:43)
--- NOTE | 2019-06-15 08:29 | PROGRESS NOTE ---
DATE: 06/15/2019 SUBJECTIVE: This morning Ms. Avila refers to be doing a lot better. She was actually sitting up and eating her breakfast. OBJECTIVE: Vital signs: Blood pressure is 105/41, pulse of 64, respirations 16, temperature is 92.3 degrees. Patient's T-max is 99 degrees. General: Ms. Avila is a 48-year-old female. She is in bed in no distress. Mucosa is pink and moist. Anicteric. Acyanotic. Neck: Supple. Chest: Good air entry bilaterally. There were no crepitations, no rhonchi. Cardiovascular: Regular rate and rhythm. No murmurs, no rubs, no gallops. GI: Abdomen is soft. Extremities: No pedal edema. Distal pulses present. PLATING ENGINEER: Patient is awake, alert, oriented. There is no focal neurologic deficit. Chest wall: There is a recent sternotomy incision. LABORATORY DATA: WBC is down to 8.79, hemoglobin is 8.9, platelet count of 285,000. Chemistry is also reviewed, consistent with end-stage renal disease. So far blood cultures have been 48 hours negative. The patient is currently on Zyvox and cefepime. ASSESSMENT: 1. Chest pain on presentation, most likely related to recent cardiothoracic surgery and pneumonia. 2. Right mid and lower lobe pneumonia. Patient is currently on Zyvox and cefepime. 3. Endstage renal disease, on hemodialysis via a tunneled catheter in the left anterior chest wall. 4. History of congestive heart failure, currently euvolemic. 5. Diabetes mellitus, controlled. 6. Hypertension, controlled. 7. Coronary artery disease status post coronary artery bypass grafting. 8. Atherosclerotic disease noted. Patient is on Lipitor. 9. Previous smoker. PLAN: In general, I think Ms. Avila is doing a lot better. We are going to transfer her from the ICU to the medical floor. She is currently hemodynamically stable. She denies any more chest pain. She is tolerating her breakfast. Will continue with the current antimicrobial coverage. Repeat her chest x-ray tomorrow. Hopefully discharge her Monday on oral antimicrobials. cc: Morro Munguia MD
--- NOTE | 2019-06-15 14:24 | NEPHROLOGY PROGRESS NOTE ---
DATE: 06/15/2019 SUBJECTIVE: She is transferring to the floor. No further chest pain, fever, chills, etc. OBJECTIVE: Vital Signs: Blood pressure 118/51, heart rate 64, respirations 16, afebrile. General: In no acute distress. Skin: Warm and dry. Neck: Neck veins are not distended. Heart: Regular. Lungs: Equal. No crackles. Abdomen: Soft. Bowel sounds are present. Extremities: Minimal edema. No clubbing or cyanosis. IMPRESSION: 1. Chronic kidney disease 5D. Appears euvolemic. Electrolytes/acid base/blood pressure are all in target. Hemoglobin is below target but stable. Does not meet criteria for transfusion. cc: Aaron Jones MD
[2019-06-15] MEDS: TYLENOL PO PRN (20:35)
[2019-06-15] MEDS: LIPITOR PO SCH (20:36)
[2019-06-15] MEDS ORDERED: MORPHINE IV ONE (22:39)
[2019-06-16] MEDS: HEPARIN SUBQ SCH ×4 (00:44→23:33)
[2019-06-16] MEDS: MAXIPIME 1 GM in NS 50 ML IV SCH ×3 (03:37→16:21)
[2019-06-16] MEDS: ZYVOX 600 MG/D5W 600 MG/300 ML IVPB IV SCH ×2 (03:37→16:24)
[2019-06-16] MEDS: HUMALOG SUBQ SCH ×4 (06:29→21:27)
[2019-06-16 06:50] LABS: HEMATOCRIT 27.4 % (37.0-47.0); HEMOGLOBIN 8.5 g/dL (12.0-16.0); MCH 29.9 PG (27-31); MCV 96.5 FL (81-99); MPV 8.9 FL (7.4-10.4); RBC 2.84 XMIL (4.2-5.4); RDW 15.1 % (11.5-14.5); WBC 7.57 X1000 (4.8-10.8)
[2019-06-16 07:02] LABS: ALBUMIN 2.7 g/dL (3.5-5.0); CALCIUM 8.2 mg/dL (8.8-10.2); PHOSPHORUS 5.3 mg/dL (2.7-4.5); POTASSIUM 4.5 mmol/L (3.5-5.1)
[2019-06-16 07:04] LABS: CREATININE 6.1 mg/dL (0.5-0.9)
[2019-06-16] MEDS: COREG PO SCH ×2 (08:41→21:27)
[2019-06-16] MEDS: ASPIRIN PO SCH (08:41)
[2019-06-16] MEDS: NORVASC PO SCH (08:41)
[2019-06-16] MEDS: NEURONTIN PO SCH ×3 (08:41→16:21)
[2019-06-16] MEDS: APRESOLINE PO SCH ×3 (08:42→16:21)
--- NOTE | 2019-06-16 09:15 | PROGRESS NOTE ---
DATE: 06/16/2019 SUBJECTIVE: This morning, Ms. Avila refers to be doing well. She still has some chest pain, especially at the area of the recent surgery. Shortness of breath has significantly improved. According to the nursing staff, she went to the restroom yesterday. She felt slightly winded, and they had to put the oxygen back on her. However, this morning, she says she thinks she does not need it. She is saturating 98% on 1 L. OBJECTIVE: Vital Signs: Blood pressure is 125/47, pulse is 63, respirations 14, temperature is 98.4 degrees. General: Ms. Avila is a 48-year-old female. She is in bed. She does not seem to be in any distress. HEENT: Mucosa is pink and moist. Anicteric. Acyanotic. Neck: Supple. Chest: There is a fresh sternotomy scar on the anterior chest wall. There is good air entry bilaterally. I did not hear any crepitations. Cardiovascular: Regular rate and rhythm. No murmurs, no rubs, no gallops. [place] beat is at the fifth intercostal space. GI: Abdomen is soft, nontender. Bowel sounds present. Extremities: No pedal edema. VENEER GRADER: The patient is awake, alert, oriented. The patient's I's and O's show that urine was not documented yesterday. She seems to be negative balance during the hospital course. The patient has been tolerating her diet, and there has not been any documented bowel movement. ASSESSMENT AND PLAN: 1. Chest pain on presentation, most likely related to recent cardiothoracic surgery. 2. Right mid and lower lobe pneumonia, most likely hospital associated. The patient is currently on Zyvox and cefepime. We are pending a repeat chest x-ray. 3. End-stage renal disease, on hemodialysis via tunneled catheter in the left anterior chest wall on Monday, Monday, and Monday. Nephrology is on board. 4. History of congestive heart failure, currently euvolemic. 5. Diabetes mellitus, controlled on insulin regimen. 6. Coronary artery disease, status post recent coronary artery bypass graft. 7. Atherosclerotic disease noted on CT scan. The patient is currently on Lipitor. 8. Previous smoker. 9. Constipation. Will start the patient on bowel regimen. We are still pending the chest x-ray this morning to follow up on the right lower lobe pneumonia. cc: Morro Munguia MD
[2019-06-16] MEDS: DUONEB (A & A) INH SCH ×4 (09:58→21:24)
[2019-06-16] MEDS: MIRALAX PO SCH (10:16)
[2019-06-16] MEDS: HUMULIN 70/30 SUBQ SCH (10:16)
--- NOTE | 2019-06-16 10:37 | Diag Imaging Result Doc PS360 ---
EXAM: CHEST-2 VIEWS HISTORY: hypoxia TECHNIQUE: Two views COMPARISON: 06/12/2019 FINDINGS: The lungs are well expanded. The heart remains mildly enlarged. No pulmonary edema. No consolidation. No pleural effusions identified. There are sternal wires and a right jugular line. No pneumothorax. IMPRESSION: Mild cardiomegaly Electronically signed by Saurav Aguayo 06/16/2019 10:34 AM
[2019-06-16] MEDS ORDERED: HUMULIN 70/30 SUBQ SCH (21:00)
[2019-06-16] MEDS: LIPITOR PO SCH (21:27)
[2019-06-16] MEDS ORDERED: INSULIN PEN NEEDLES ONE (21:36)
[2019-06-16] MEDS: TYLENOL PO PRN (23:56)
[2019-06-17] MEDS: DUONEB (A & A) INH SCH ×2 (03:30→09:36)
[2019-06-17] MEDS: ZYVOX 600 MG/D5W 600 MG/300 ML IVPB IV SCH (04:29)
[2019-06-17] MEDS: MAXIPIME 1 GM in NS 50 ML IV SCH (04:29)
[2019-06-17] MEDS: HUMALOG SUBQ SCH ×2 (06:17→11:38)
[2019-06-17] MEDS: HEPARIN SUBQ SCH (06:31)
[2019-06-17] MEDS: NEURONTIN PO SCH ×2 (10:09→13:44)
[2019-06-17] MEDS: NORVASC PO SCH (10:09)
[2019-06-17] MEDS: COREG PO SCH (10:09)
[2019-06-17] MEDS: APRESOLINE PO SCH ×2 (10:09→12:22)
[2019-06-17] MEDS: ASPIRIN PO SCH (10:10)
[2019-06-17] MEDS: MIRALAX PO SCH (10:10)
[2019-06-17] MEDS: HUMULIN 70/30 SUBQ SCH (10:10)
[2019-06-17] MEDS: TYLENOL PO PRN (10:15)
[2019-06-17 12:11] VITALS: BP 122/81
--- NOTE | 2019-06-17 16:43 | PROVIDER PROGRESS NOTE ---
Progress Note Subjective: when entering the room the patient was sleeping with eyes closed in no distress. She was aroused to verbal stimuli. When asked if she was having any complaints she said she was having 8/10 chest pain. This is the same chest pain that she has been experiencing and was admitted with. No other uremic complaints. Objective: temperature 97.7, pulse 68, respirations 21, low pressure 136/56, 02 sat 97% on 2 L nasal cannula. General: chronically ill white female lying in bed in no acute distress. HEENT: normocephalic, atraumatic, pupils equal and reactive, mucous membranes dry. Trachea midline. Skin: warm and dry Neck: supple, 6cm JVD. Cardiovascular: S1S2 regular rate and rhythm, no murmur gallop noted. Respiratory: coarse breath sounds bilaterally with equal air excursion. : non inspected, holley in place with Annamarie urine Abdominal: soft, obese, nontender, non distended, bowel sounds present Extremities: no clubbing or cyanosis. Trace Edema. Neurological: Alert, oriented to person, place, and time. Labs: intake 1310, output 0. Impression: Chronic kidney disease 5D. [facility] We will plan on dialyzing her again today at her routine outpatient clinic after discharge. . No change. Electrolytes and acid base balance. Stable. Anemia. Low but stable. Does not meet transfusion criteria. blood pressure. In target. medication review no changes.
[2019-06-17] MEDS ORDERED: ZYVOX PO SCH (18:00)
--- NOTE | 2019-06-18 16:08 | DISCHARGE SUMMARY ---
ADMISSION DATE: 06/12/2019 DISCHARGE DATE: 06/17/2019 DISPOSITION: Home. FOLLOW-UP: 1. Dr. Arias Jackson. 2. Dr. Jones. CONSULTATION DURING ADMISSION: Nephrology was consulted. Patient was seen by Dr. Jones. INVASIVE PROCEDURES DONE DURING ADMISSION: None. IMAGING STUDIES OF SIGNIFICANCE: A chest x-ray on admission did show cardiomegaly and pulmonary vascular congestion. Infiltrate in the right mid lung and base concerning for pneumonia. A repeat chest x-ray done yesterday shows mild cardiomegaly. No infiltrates. ADMISSION DIAGNOSES: 1. Right mid and lower lobe pneumonia. 2. Endstage renal disease. 3. Congestive heart failure with exacerbation. 4. Diabetes mellitus. 5. Hypertension. DIAGNOSES AT TIME OF DISCHARGE: 1. Chest pain on presentation secondary to musculoskeletal related to recent cardiothoracic surgery. 2. Right middle and lower lobe pneumonia. Subsequent x-rays have shown remarkable improvement. The patient has been discharged on oral antibiotics to complete a total of 7 days. 3. Endstage renal disease on hemodialysis via tunneled catheter on the left anterior chest wall on Monday, Monday, and Monday. Nephrology was on board. 4. History of congestive heart failure currently euvolemic. 5. Diabetes mellitus on insulin regimen. 6. History of coronary artery disease status post recent CABG. 7. Aortic atherosclerotic disease. 8. Constipation improved. 9. Previous smoker. DISCHARGE MEDICATIONS: 1. Carvedilol 12.5 b.i.d. 2. Atorvastatin 80 mg p.o. at bedtime. 3. Hydralazine 25 3 times per day. 4. Amlodipine 5 mg daily. 5. Gabapentin 300 three times per day. 6. Insulin 70/30, 12 units subcutaneous 18 units at bedtime. 7. Famotidine 20 mg p.o. daily. 8. Guaifenesin. 9. Oxycodone. 10. Aspirin 325 p.o. daily. 11. Zyvox 600 b.i.d. 12. Augmentin 875 p.o. q.12. 13. Oxycodone. PRESENTING COMPLAINT: Chest pain. HISTORY OF PRESENTING COMPLAINT: Ms. Avila is a 48-year-old female who recently underwent open heart surgery about [address] Oleary in [facility], who came to the emergency department because of acute onset of chest discomfort. She was evaluated, and was found to have chest pain related to the recent cardiothoracic surgery. Also, she did have a right lung pneumonia. The patient was admitted for further medical care. HOSPITAL COURSE: Ms. Avila was admitted to the cardiac floor, and was started on IV antibiotics. Nephrology was consulted. Patient was seen by Dr. Jones. Dialysis was scheduled as needed. The patient's WBC on admission was 17.10. She was started on broad-spectrum IV antibiotics to cover hospital associated pneumonia. White cell count continues to improve. Yesterday, it has normalized to 7.57. Ms. Avila continued to show remarkable improvement during the hospital course. This morning she refers to be feeling a whole lot better. Vitals: Blood pressure is 122/81, pulse of 61, respirations 16, and temperature 97.3 degrees. She feels a lot better. She still has mild chest discomfort, but she has significantly improved. We think she is stable to be discharged home. She is going to follow up with her crib clerk, and her cardiothoracic surgeon as well as her primary care doctor. All the discharge instructions have been discussed with her. She voiced understanding. Ms. Avila will also continue with p.o. antimicrobial for a total of 7 days. Side effects have all been discussed with her. TIME SPENT FOR DISCHARGE: 35 minutes. cc: Morro Munguia MD MTDD
== END 2019-06-17 14:10 | disposition home or self-care (01) | DRG 177 ==
LOC: SUPCPDRO → ED 12:25 → ICU 21:42 → SUATTDRO 21:42 → 2N 06-15 10:52
PROVIDERS: ATTEND Internal Medicine

== ENCOUNTER 2019-08-19 12:18 | Inpatient (IN) ==
[2019-08-19 13:20] LABS: BASO# 0.05 X1000 (0.0-0.2); BASO% 0.2 % (0.0-0.8); EOS# 0.01 X1000 (0.0-0.7); HEMATOCRIT 39.6 % (37.0-47.0); HEMOGLOBIN 12.8 g/dL (12.0-16.0); IMM GRAN# 0.11 X1000 (0.0-0.04); IMM GRAN% 0.5 % (0.0-0.5); LYMPH# 2.11 X1000 (1.2-3.4); LYMPH% 9.6 % (20.5-51.1); MCH 30.6 PG (27-31); MCHC 32.3 g/dL (33-37); MCV 94.7 FL (81-99); MONO# 1.62 X1000 (0.11-0.59); MONO% 7.4 % (1.7-9.3); MPV 9.5 FL (7.4-10.4); NEUT% 82.3 % (42.2-75.2); PLT 172 X1000 (130-400); RBC 4.18 XMIL (4.2-5.4); RDW 15.3 % (11.5-14.5)
--- NOTE | 2019-08-19 13:21 | EKG Report ---
Test Performed on : 08/19/2019 12:38:10 PM Test Reason : ER Blood Pressure : / mmHG Vent. Rate : 104 BPM Atrial Rate : 104 BPM P-R Int : 134 ms QRS Dur : 082 ms QT Int : 330 ms P-R-T Axes : 031 -12 123 degrees QTc Int : 433 ms Sinus tachycardia. T wave abnormality, consider lateral ischemia Abnormal ECG When compared with ECG of 12-JUN-2019 12:30, (Unconfirmed) Vent. rate has increased BY 39 BPM T wave inversion less evident in Anterior leads Unconfirmed Result
[2019-08-19] MEDS ORDERED: NS 1,000 ML IV ONE ×3 (13:24→13:25)
[2019-08-19] MEDS ORDERED: TYLENOL PO ONE (13:26)
--- NOTE | 2019-08-19 13:31 | PROVIDER DOCUMENTATION ---
This chart was entered by Evette Perla Scribe, acting as scribe for Roxane Soliman MD. HPI-General Adult - General Chief Complaint: Chest Pain Stated Complaint: CHEST PAIN / FEET NUMB Time Seen by Provider: 08/19/19 12:37 Source: patient Allergies/Adverse Reactions: Patient Allergies Allergy/AdvReac Type Severity Reaction Status Date / Time No Known Allergies Allergy Verified 01/23/19 12:59 Home Medications: Home Medication List Medication Instructions Recorded Confirmed Last Taken Type Carvedilol 12.5 mg PO BID 02/27/13 06/12/19 06/12/19 09:00 History Atorvastatin Calcium [Lipitor] 80 mg PO QHS 11/18/15 06/12/19 06/12/19 09:00 History Hydralazine [Apresoline] 25 mg PO TID 05/06/17 06/12/19 06/12/19 09:00 History Amlodipine Besylate 5 mg PO DAILY 02/01/18 06/12/19 06/12/19 09:00 History Gabapentin [Neurontin] 300 mg PO TID 07/31/18 06/12/19 06/12/19 09:00 History Ondansetron [Zofran] 4 mg PO Q6H PRN PRN 07/31/18 06/12/19 06/12/19 09:00 History Famotidine [Pepcid] 20 mg PO DAILY PRN 06/12/19 06/13/19 06/12/19 History Guaifenesin E.r. [Mucinex] 600 mg PO BID PRN 06/12/19 06/12/19 Unknown History Insulin Human Regular [Humulin R] See Protocol SUBQ DAILY 06/12/19 06/12/19 06/12/19 09:00 History Insulin NPH Hum/Reg Insulin Hm 12 unit SQ QAM 06/12/19 06/12/19 06/12/19 History [Humulin 70/30 Kwikpen] Insulin NPH Hum/Reg Insulin Hm 18 unit SQ QHS 06/12/19 06/12/19 06/11/19 History [Humulin 70/30 Kwikpen] Aspirin 325 mg PO DAILY 06/13/19 06/13/19 Unknown History Amoxicillin/Pot Clavulanate 875 mg PO Q12HR #8 tab 06/17/19 Unknown Rx [Augmentin] Linezolid [Zyvox] 600 mg PO BID #8 tab 06/17/19 Unknown Rx Oxycodone HCl/Acetaminophen 1 ea PO Q6HR PRN #20 tab 06/17/19 Unknown Rx [Percocet 5-325 mg Tablet] - History of Present Illness -Gen Adult Nature of Presenting Problems: Pt is a 48 yowf with c/o of chest pain and loss of use of legs. Pt states that yesterday she started experiencing chest pain and now she cannot get her feet and legs to move hardly at all. Pt had open heart surgery for 3 vessels and has had 3 CVAs. Pt is alert, mildly distressed and nontoxic in appearance. Location of Pain/Injury: reports: chest Pain Radiation: reports: no radiation, back Quality of Pain: reports: aching, pressure Severity: reports: moderate Onset/Duration: reports: abrupt, 24 hours ago Timing: reports: still present, constant Context/Activities at Onset: reports: light activity Associated Symptoms: reports: chest pain, weakness, trouble walking. denies: constipation, cough, diarrhea, fever/chills, nausea, shortness of breath, syncope, vomiting Similar Symptoms Previously?: No Review of Systems - Adult - REVIEW OF SYSTEMS - ADULT Constitutional: reports: no symptoms reported Eyes: reports: no symptoms reported Ears, Nose, Mouth & Throat: reports: no symptoms reported Cardiovascular: reports: see HPI, chest pain. denies: syncope Respiratory: denies: cough, shortness of breath Gastrointestinal: denies: abdominal pain, diarrhea, vomiting Genitourinary: reports: no symptoms reported Musculoskeletal: reports: see HPI, muscle weakness (feet and legs) Integumentary: reports: no symptoms reported Neurological: reports: see HPI. denies: syncope Psychiatric: reports: no symptoms reported Endocrine: reports: no symptoms reported Hematologic/Lymphatic: reports: no symptoms reported Allergic/Immunologic: reports: no symptoms reported All Other Systems: Reviewed and Negative Past History - Adult - PAST MEDICAL HISTORY-ADULT Review of Records: reports: Old Records Reviewed, Nursing Assessment Review, Medications Reviewed, Social history reviewed & non-contributory. Major Childhood Illnesses: reports: denies history Cardiovascular: reports: CAD, CHF, HTN, hyperlipidemia Respiratory: reports: denies history Gastrointestinal: reports: denies history Obstetrical/Gynecological: reports: denies history Genitourinary: reports: denies history Musculoskeletal: reports: denies history Neurological: reports: CVA Psychiatric: reports: denies history Endocrine/Immune: reports: Diabetes Other Conditions: reports: denies history - PRIOR SURGERIES/PROCEDURES Surgical/Procedure History: reports: cardiac stent, BTL - IMMUNIZATION STATUS Childhood Immunizations: See Nurse Assessment Flu Vaccine: See Nurse Assessment - FAMILY HISTORY Family History: reviewed, not pertinent - SOCIAL HISTORY Smoking: quit greater than 1 year Physical Exam-General - PHYSICAL EXAM-ADULT Initial Vital Signs Reviewed: Yes (Temp 101.2; HR 104) - CONSTITUTIONAL General Appearance: alert, mild distress, obese, anxious - EYES Eyes: pink conjunctivae - HEAD, EARS, NOSE, MOUTH & THROAT HENMT: moist mucous membranes - NECK Neck: non-tender, supple, normal inspection - RESPIRATORY Respiratory: chest non-tender, no respiratory distress, decreased breath sounds, wheezing (scant bilateral) - CARDIOVASCULAR Cardiovascular: normal peripheral pulses, no murmur, tachycardia - GASTROINTESTINAL (ABDOMEN) Abdominal Exam: normal bowel sounds, non tender, soft, other (obese) - MUSCULOSKELETAL Back Exam: normal inspection, no CVA tenderness, no vertebral tenderness Extremity: non-tender, normal inspection, other (bilateral lower extremity weakness) - SKIN Integumentary: normal color, normal turgor, warm/dry - NEUROLOGIC Neurologic: facial droop (left sided, pt states that is new and she did not notice before coming to ED), motor weakness - PSYCHIATRIC Psych/Mental Status: normal thought content, normal thought process, oriented x 3, anxious Progress - PLAN OF CARE/RESULTS Progress/Plan/Lab Results: Vital Signs - 8 hr 08/19/19 12:23 Temperature 101.2 F H Pulse Rate 104 H Respiratory Rate 15 Blood Pressure 169/91 O2 Sat by Pulse Oximetry 93 L Orders Category Date Time Status CHEST-PORTABLE [RAD] Stat Exams 08/19/19 13:[address] HEAD W/O CONTRAST [CT] Stat Exams 08/19/19 13:05 Ordered CBC WITH ELECTRONIC DIFF [HEME] Stat Lab 08/19/19 13:07 Ordered COMPREHENSIVE METABOLIC PANEL [CHEM] Stat Lab 08/19/19 13:[address] Stat Lab 08/19/19 13:05 Uncollected LACTATE, PLASMA [CHEM] Stat Lab 08/19/19 13:07 Ordered TROPONIN T HIGH SENSITIVITY Stat Lab 08/19/19 13:07 Ordered URINALYSIS W/POSS RFLX CULT [URINALYSIS] Stat Lab 08/19/19 13:05 Uncollected URINE DRUG SCREEN PL Stat Lab 08/19/19 13:05 Uncollected Patient meets sepsis criteria with temp, WBC to 22k and tachycardia. Her CXR is showing PNA. She does not make urine. Was supposed to go to dialysis today but when she got there they told her to come to the ED. Her CT is negative for anything acute but she does have some neuro deficits that she states are new. Her EKG is unchanged from prior but she also has an elevated troponin. She recently had a CABG. Blood cultures ordered, LA normal. Will need admission. Spoke to Dr Jaramillo, baby registry sales consultant for hosp who accepted patient for admission. Furt her orders placed per their team. Result Diagrams: 08/19/19 13:00 08/19/19 13:00 - EKG 1 Time of EKG reading by physician:: 12:45 EKG Read and Signed by:: Roxane Soliman EKG Interpretation (*Must complete 3 of following elements*): Abnormal Rate: 104 Rhythm: NSR Hamilton: normal QRS: normal ST Wave: non-specific ST changes (T wvae inversion in I and AVL) Prior EKG Comparison: changes noted (improved from 05/2019) - XRAY 1 XRAY Study: Chest Impression: See EMR Report (EXAM: CHEST-PORTABLE 08/19/2019 HISTORY: fever TECHNIQUE: AP portable erect at 1336 COMMENT: There is cardiomegaly. There is a double-lumen internal jugular central venous catheter with its tip in the right atrium. There is interstitial and alveolar pulmonary edema. This is worse than on 06/16/2019. IMPRESSION: Pulmonary edema and/or pneumonia. Electr onically signed by Raheem Mccain 08/19/2019 1:37 PM 08/19/19 1337 Interpreting Physician: Raheem Mccain MD Dictated Date/Time: 08/19/19 1336 cc: Roxane Soliman MD; Renetta Bianchi) - CT/MRI 1 CT Study: Head Impression: See EMR Report (EXAM: CT HEAD W/O CONTRAST 08/19/2019 HISTORY: neuro symptoms, h/o CVA TECHNIQUE: This exam was performed using automated exposure control, adjustment of mA or kV according to patient size, and/or use of iterative reconstruction technique. COMMENT: There are calcifications in the vertebral arteries bilaterally. There is some patchy lucency in the white matter of both hemispheres particularly in the periventricular white matter adjacent to the left frontal horn. This was also the case at the time the previous study of 03/03/2016. There is a lacune adjacent to the left lateral ventricle in the rosales radiata region which was also present previously. No evidence of mass effect, bleed, or abnormal extra-axial fluid collection is present. The calvarium is intact. The visualized paranasal sinuses are clear. IMPRESSION: Chronic ischemic changes. No evidence of acute intracranial disease. Electronically signed by Raheem Mccain 08/19/2019 1:33 PM 08/19/19 1333 Interpreting Physician: Raheem Mccain MD Dictated Date/Time: 08/19/19 1329 cc: Roxane Soliman MD; Renetta Bianchi) - CONSULTS/PCP/HOSPITALIST Notification #1 *Consult/PCP/Hospitalist*: Dr Jaramillo Time Discussed: 15:03 Consult Disposition: Will see in ED, Admit Departure - Departure Date of Disposition Decision: 08/19/19 Time of Disposition Decision: 15:01 DIAGNOSIS: Pneumonia, CAD (coronary artery disease), ESRD (end stage renal disease) on dialysis, Diabetes, Sepsis Disposition: ADMITTED INPATIENT 09 Certified Medical Emergency: Emergent Condition: Stable - Critical Care Note This patient required my direct & personal management of CC.: Yes Total Time (mins): 35 Critical Care Statement: This patient required my direct personal management to treat or rule out processes, the absence of which, could potentiallly result in sudden, clinically significant life or limb threatening deterioration. Attestation - Physician/ ISHAAN Attestation Patient care was provided by Advanced Practice Provider:: No The physician spent face to face time with patient:: Yes Advanced Practice Provider documentation review:: Supervising physician onsite and consulted in the evaluation and care of this patient. The physician did have a face to face encounter with the patient. - NIH Stroke Scale NIH Type: Initial Evaluation Level of Consciousness: 0-Alert LOC Questions (ask month and age): 0-Answers Both Correctly LOC Commands (ask to open & close eyes;make a fist, let go): 0-Obeys Both Correctly Best Gaze (horizontal eye movement): 0-Normal Visual (use finger movement, counting or visual threat): 0-No Visual Loss Facial Palsy (show teeth or raise eyebrows & close eyes tght: 1-Minor Paralysis Motor Function-left arm: 0-Normal Motor Function-right arm: 0-Normal Motor Function-left le-No Effort Against [place] Motor Function-right le-No Effort Against [place] Limb Ataxia(gztiva-mxts-hugart, or heel to licona): 0-No Ataxia Sensory(pin prick to face,arms,trunk,legs-compare side/side): 0-No Ataxia Best Language(name item/read sentence.Ex-Down to Earth): 0-No Aphasia Dysarthria(Pt read words or say words Ex.Mama,Tip-Top,Thanks: 1-Mild-Mod Slurring Words Extinction and Inattention: 0-Normal NIH Total Score: 8 This chart was documented by the indicated scribe, (Evette Perla, Scribe) a nd accurately reflects the services I performed and decisions made by me, Roxane Soliman MD, as attested by the provider's signature.
--- NOTE | 2019-08-19 13:36 | Diag Imaging Result Doc PS360 ---
EXAM: CT HEAD W/O CONTRAST 08/19/2019 HISTORY: neuro symptoms, h/o CVA TECHNIQUE: This exam was performed using automated exposure control, adjustment of mA or kV according to patient size, and/or use of iterative reconstruction technique. COMMENT: There are calcifications in the vertebral arteries bilaterally. There is some patchy lucency in the white matter of both hemispheres particularly in the periventricular white matter adjacent to the left frontal horn. This was also the case at the time the previous study of 03/03/2016. There is a lacune adjacent to the left lateral ventricle in the rosales radiata region which was also present previously. No evidence of mass effect, bleed, or abnormal extra-axial fluid collection is present. The calvarium is intact. The visualized paranasal sinuses are clear. IMPRESSION: Chronic ischemic changes. No evidence of acute intracranial disease. Electronically signed by Raheem Mccain 08/19/2019 1:33 PM
--- NOTE | 2019-08-19 13:39 | Diag Imaging Result Doc PS360 ---
EXAM: CHEST-PORTABLE 08/19/2019 HISTORY: fever TECHNIQUE: AP portable erect at 1336 COMMENT: There is cardiomegaly. There is a double-lumen internal jugular central venous catheter with its tip in the right atrium. There is interstitial and alveolar pulmonary edema. This is worse than on 06/16/2019. IMPRESSION: Pulmonary edema and/or pneumonia. Electronically signed by Raheem Mccain 08/19/2019 1:37 PM
[2019-08-19 13:44] LABS: ALBUMIN 3.6 g/dL (3.5-5.0); CALCIUM 8.2 mg/dL (8.8-10.2); POTASSIUM 4.9 mmol/L (3.5-5.1); TOTAL PROTEIN 6.9 g/dL (6.3-8.3)
[2019-08-19 13:49] LABS: INR 1.18; PROTIME 15.6 Seconds (11.0-16.0)
[2019-08-19 13:50] LABS: PTT 38.6 Seconds (22.3-41.8)
[2019-08-19 13:53] LABS: CREATININE 6.8 mg/dL (0.5-0.9)
[2019-08-19] MEDS ORDERED: VANCOMYCIN 1 GM/NS 1 GM/250 ML IVPB IV ONE (14:27)
[2019-08-19 14:29] LABS: INFLUENZA A NEGATIVE (NEGATIVE); INFLUENZA B NEGATIVE (NEGATIVE)
[2019-08-19] MEDS ORDERED: NITROGLYCERIN TOP ONE (14:49)
[2019-08-19] MEDS: ZOSYN 3.375 GM in NS 50 ML IV SCH ×2 (14:55→22:29)
[2019-08-19] MEDS ORDERED: ZOFRAN IV PRN (15:36)
[2019-08-19] MEDS ORDERED: HEPARIN IV PRN (16:09)
[2019-08-19] MEDS ORDERED: NS 2,000 ML MISC PRN (16:09)
--- NOTE | 2019-08-19 17:51 | HISTORY AND PHYSICAL ---
CHIEF COMPLAINT: Fever, chest pain, generalized body aches. HPI: This is a 48-year-old female with a prior history of diabetes mellitus, end-stage renal disease on Monday, Monday, Monday hemodialysis, hypertension, coronary artery disease status post coronary artery bypass graft in May 2019 and reported CVA. She presents to the emergency room complaining of chest pain. She describes this chest pain as an achy soreness type pain that is midsternal. It can be reproduced with palpation and movement. She does state that she has had this since her bypass surgery. 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 She is end-stage renal disease on Monday, Monday, Monday hemodialysis. She states that she missed Monday's dialysis as well as today's. PAST MEDICAL HISTORY: 1. End-stage renal disease on Monday, Monday, Monday hemodialysis. 2. Hypertension. 3. Diabetes mellitus with hyperglycemia. 4. Peripheral vascular disease. 5. Coronary artery bypass graft in May 2019. PAST SURGICAL HISTORY: 1. Coronary artery bypass graft. 2. AV shunt. SOCIAL HISTORY: She smokes about a pack a day. She has occasional alcohol. She denies any illicit drug use. ALLERGIES: No stated allergies. HOME MEDICATIONS: A list will be obtained by the nursing staff and once verified will review and restart as appropriate. REVIEW OF SYSTEMS: Discussed with the patient with pertinent positives stated in the HPI. She denied any syncope, any productive cough, any palpitations, any nausea, vomiting, diarrhea, constipation, black or bloody vomitus or stools, any hematuria, dysuria, frequency, urgency. PHYSICAL EXAMINATION: GENERAL: This is a 48-year-old female who is lying on the stretcher in the emergency room in no distress. VITAL SIGNS: Blood pressure 124/58 with a heart rate of 85, respirations are 20 to 22, temperature is 98.9 degrees oral with a T-max of 101.2 degrees at 12:30 today, O2 saturations are 96 to 98 percent. HEENT: Pupils are equal, round, react to light. EOMs are intact. Sclerae are anicteric. Head is normocephalic, atraumatic. Mucous membranes are dry. NECK: Supple with trachea midline. CARDIOVASCULAR: Regular rate and rhythm. S1 and S2 are appreciated. No rubs, murmurs or gallops. Calves are nontender bilateral. PULMONARY: Breath sounds with expiratory wheezes, rhonchi that do not clear to cough scattered throughout. Chest rises and falls symmetric with respiration. Chest wall is tender to palpation midsternal. GASTROINTESTINAL: Abdomen large, soft, nontender, nondistended with bowel sounds in all 4 quadrants. SKIN: Warm and dry. NEUROLOGIC: She is alert, she is oriented. She answers questions appropriately. She follows commands. Speech is clear. Muscle strength is 2 to 3/5 x4 extremities. LAB: WBC is 22 with hemoglobin 12.8, hematocrit 39.6, and platelets 172,000. Sodium 131, potassium 4.9, BUN 49, creatinine 0.8 with a glucose of 248. Troponin was 98. CT of the head revealed chronic ischemic changes. No evidence of acute intracranial disease. Chest x-ray revealed pulmonary edema and/or pneumonia. ASSESSMENT AND PLAN: 1. Pneumonia. Blood cultures have been obtained. She was given vancomycin and Zosyn. Further antibiotics will be per Dr. Jones postdialysis. Will order incentive spirometer every 4 hours. 2. Diabetes mellitus. Pattern blood glucose with sliding scale insulin. 3. Chronic kidney disease 5D on Monday, Monday, Monday dialysis in a patient who missed dialysis Monday and today. 4. History of coronary artery disease aware. 5. Chest pain that appears to be chronic. It is reproduced with palpation and movement. It is not present when lying still taking shallow breaths. She will be placed on telemetry. We will continue to trend troponins and monitor. 6. Leukocytosis secondary to pneumonia . 7. Patient will be admitted to the hospital. She will be placed on telemetry. We will consult Dr. Jones with strict intake and output with daily weights. Will identify her home medications and continue as appropriate. Start incentive spirometer every 4 hours per the nursing staff. Will consult Physical Therapy. Obtain a sputum culture. We will check a CBC and a daily renal profile, a pattern blood glucose with sliding scale insulin. 8. Patient's mentation has improved. She states she feels much better now that her fever is gone. We will continue to monitor and neuro checks every 4 hours. Plan was discussed with Dr. Jaramillo. Further treatments pending hospital course. Dictated by RAFAELA Zhou for Yifan Jaramillo MD cc: RAFAELA Zhou MD
[2019-08-19] MEDS: HUMULIN R (PARKWAY) SUBQ SCH (22:27)
[2019-08-19] MEDS ORDERED: TYLENOL PO PRN (23:35)
[2019-08-20] MEDS: TYLENOL PO PRN (01:25)
[2019-08-20] MEDS ORDERED: VANCOMYCIN IV PER PHARMACY MISC SCH (05:00)
[2019-08-20 05:38] LABS: BASO# 0.06 X1000 (0.0-0.2); BASO% 0.4 % (0.0-0.8); EOS# 0.01 X1000 (0.0-0.7); EOS% 0.1 % (0.0-10.0); HEMATOCRIT 38.4 % (37.0-47.0); HEMOGLOBIN 12.2 g/dL (12.0-16.0); IMM GRAN# 0.26 X1000 (0.0-0.04); IMM GRAN% 1.5 % (0.0-0.5); LYMPH# 1.87 X1000 (1.2-3.4); LYMPH% 11.1 % (20.5-51.1); MCH 30.1 PG (27-31); MCHC 31.8 g/dL (33-37); MCV 94.8 FL (81-99); MONO# 1.52 X1000 (0.11-0.59); MPV 9.9 FL (7.4-10.4); NEUT# 13.08 X1000 (1.4-6.5); NEUT% 77.9 % (42.2-75.2); PLT 190 X1000 (130-400); RBC 4.05 XMIL (4.2-5.4); RDW 15.2 % (11.5-14.5)
[2019-08-20] MEDS ORDERED: VANCOMYCIN 1 GM/NS 1 GM/250 ML IVPB IV SCH (06:15)
[2019-08-20] MEDS: HUMULIN R (PARKWAY) SUBQ SCH (06:16)
[2019-08-20 06:28] LABS: ALBUMIN 2.9 g/dL (3.5-5.0); CALCIUM 8.6 mg/dL (8.8-10.2); CREATININE 5.1 mg/dL (0.5-0.9); PHOSPHORUS 4.4 mg/dL (2.7-4.5); POTASSIUM 3.9 mmol/L (3.5-5.1)
--- NOTE | 2019-08-20 06:28 | HISTORY AND PHYSICAL ---
ADDENDUM: Patient seen and examined by myself. Full note dictated and discussed with nurse practitioner. Patient is a 48-year-old female presenting to the hospital with fevers, chills. Notes that she is on dialysis. She missed Monday and has not been today. She does appear to have sepsis and pneumonia. We are going to admit her to the hospital, antibiotics, and we will transfer her to [facility] for dialysis. cc: Yifan Jaramillo MD
[2019-08-20] MEDS: ZOSYN 3.375 GM in NS 50 ML IV SCH ×2 (06:50→14:28)
[2019-08-20 12:52] LABS: CK INDEX 0.7 (0.0-2.5); CK-MB 7.31 ng/mL (0.0-5.0)
[2019-08-20] MEDS ORDERED: ROBAXIN PO PRN (13:32)
--- NOTE | 2019-08-20 13:53 | Diag Imaging Result Doc PS360 ---
EXAM: CHEST-2 VIEWS HISTORY: reassess pulmonary edema/pneumonia TECHNIQUE: Two views COMPARISON: 08/19/2019 FINDINGS: The lungs are well expanded. The heart is mildly enlarged. There are sternal wires. No change in the left catheter. The vessels are not distended. There are no infiltrates. No pleural effusions. IMPRESSION: Interval improvement Electronically signed by Saurav Aguayo 08/20/2019 1:51 PM
--- NOTE | 2019-08-20 13:54 | PROGRESS NOTE ---
DATE: 08/20/2019 Ms. Avila presented yesterday. She is a patient of Dr. Renetta Bianchi. She has had fever, chest pain, generalized body aches. A 48-year-old with a history of diabetes mellitus, end-stage renal disease. Gets dialysis Mondays, Wednesdays, and Fridays. History of hypertension, coronary artery disease, status post coronary artery bypass graft in May 2019, and reported CVA. She presented to the emergency room complaining of chest pain. Described the chest pain as achy, soreness, more on the right side. It can be reproduced with palpation and movement. She does state that she has had this since her bypass surgery. Complains of nausea, generalized body aches. Her midline scar, she has an eschar at the lower end of the scar and some erythema. PAST MEDICAL HISTORY: 1. End-stage renal disease, hemodialysis Mondays, Wednesdays, Fridays. 2. Hypertension. 3. Diabetes mellitus type 2 with hyperglycemia. 4. Peripheral vascular disease. 5. Coronary artery bypass graft in May 2019. PAST SURGICAL HISTORY: 1. Coronary artery bypass graft. 2. AV shunt. Admitted with: 1. Pneumonia. Blood cultures obtained. Vancomycin and Zosyn were started. Had a preliminary part of a gram-positive cocci in one of her blood cultures, I believe. 2. Diabetes mellitus type 2. Continue pattern sugars. 3. Chronic kidney disease stage 5D. She received her dialysis yesterday. Will get it on Mondays, Wednesdays, and Fridays. Her volume status and electrolytes look good. 4. History of coronary artery disease. Aware. Status post CABG/bypass. 5. Chest pain which appears to be musculoskeletal and chronic since her bypass surgery. 6. Leukocytosis secondary to pneumonia. 7. Nutrition looks good. Her midline scar with some erythema but I do not know that she has any active infection. She is on vancomycin and Zosyn. Awaiting blood cultures. We will get her back on her home medicines. She is on aspirin 325 mg a day, atorvastatin 80 mg a day, Coreg 12.5 mg b.i.d., gabapentin 800 mg t.i.d., hydralazine 25 mg t.i.d., hydrocodone. She gets 7.5 mg q.6 hours p.r.n. Humulin regular. I think we will give her NPH and schedule, I think she is on sliding scale. Continue isosorbide mononitrate and we will give her a muscle relaxer if she needs it. Plan is check an echocardiogram. LABORATORY DATA: From today, sodium 136, potassium 3.9, chloride 97, BUN 33, creatinine 5.1. cc: Moise Middleton MD
--- NOTE | 2019-08-20 14:26 | Diag Imaging Result Doc PS360 ---
EXAM: US RENAL 2 (RETROPER) COMPLETE HISTORY: hemodialysis with fluid volume shift TECHNIQUE: Renal ultrasound COMPARISON: None. FINDINGS: The right kidney measures 7.5 x 4.8 x 3.3 cm. The left kidney measures 9.2 x 4.1 x 3.8 cm. Normal renal echotexture. Mild cortical thinning. No stones or hydronephrosis. No renal mass. IMPRESSION: The kidneys are small with mild cortical thinning. Electronically signed by Saurav Aguayo 08/20/2019 2:23 PM
[2019-08-20] MEDS: COREG PO SCH ×2 (14:28→20:43)
[2019-08-20] MEDS: NORCO-7.5 PO SCH ×2 (14:29→20:44)
--- NOTE | 2019-08-20 16:17 | PROVIDER PROGRESS NOTE ---
Progress Note Chief complaint: I was having chest pain. HPI: Ms. Avila is a 48-year-old white female with a past medical history of end-stage renal disease with hemodialysis on Monday, Monday, and Monday, diabetes mellitus, hypertension, coronary artery disease status post coronary artery bypass graft in May 2019. She has a history of chest pain with hemodialysis treatment and has cut her treatment times for this. She did not go to her hemodialysis treatment this past Monday or this Monday. She started having chest pain that began when she woke up on Monday morning. 03/26. She denied the pain radiating anywhere. She denied shortness of breath, fever, chills, dizziness, or nausea and vomiting. The pain was more on the right upper chest and was reproducible. Exertion aggravated the pain and rest relieved it. She did not take any medications such as nitroglycerin to help relieve the pain. She started having shortness of breath on Monday with her chest pain and decided to come in the Emergency Room. Upon arrival she was febrile, nauseous, and complaining of general malaise. Her chest pain was still right sided and reproducible with no radiation. Upon evaluation she was diagnosed with pulmonary edema and/or pneumonia and started on antibiotics. Past medical history: end stage renal disease with hemodialysis on Monday, Monday, and Monday, myocardial infarction, diabetes mellitus, hypertension, hyperlipidemia, and peripheral vascular disease. Past surgical history: fistula placement to the left upper extremity, coronary artery bypass grafting in May 2019. Social history: she lives with her daughter at home. She is a current one pack a day cigarette smoker. She denies alcohol or illicit drug use. Family history: both her mother and father from a myocardial infarction. Allergies: no known allergies Home medications: amlodipine, Augmentin, aspirin, atorvastatin calcium, carvedilol, famotidine, gabapentin, guafenesin, hydralazine, Humulin R, Humulin 70/30, linezolid, zofran, Percocet 5-325. Review of systems: a 14 point review complete. All pertinent positives listed above in the HPI. Physical exam: temperature 97.9, pulse 92, respirations 14, blood pressure 127/59, 02 sat 95% on 2 L nasal cannula General: obese White female lying in bed in no acute distress. HEENT: normocephalic, atraumatic, pupils equal and reactive. Mucous membranes try. Skin: warm and dry. Midline chest incision with dried scab about dime size to the top and about 3 inches to the distal part. Surrounding edges to distal scab are hard. Left chest wall tunnel catheter. Left AV graft to left arm with palpable pulse. Neck: supple, no evidence of JVD in lying position. Cardiovascular: S1S2. Regular rate and rhythm. no murmur or gallop. Respiratory: wheezes anteriorly with equal air entry Abdomen: soft, nondistended, nontender, Bowel sounds active : non-inspected Extremities: Trace edema to bilateral ankles. Neurological: alert and oriented to person, place, and time. Labs: WBC 16.8, hemoglobin 12.2, hematocrit 38.4, platelet count 190, sodium 136, potassium 3.9, chloride 97, carbon dioxide 22, BUN 33, creatinine 5.1. Intake 100, output 2000 per hemodialysis. Imaging: chest x-ray impression pulmonary edema and/or pneumonia. Head CT impression chronic ischemic changes. No evidence of acute intracranial disease. Assessment and plan: Chronic kidney disease stage 5D. The patient had missed her last two scheduled hemodialysis treatments. She was dialyzed last night with a 2 L ultrafiltration. She tolerated treatment well. Chest pain. She was hospitalized in May for chest pain and upon evaluation she was found to have pneumonia. This is the same presentation. Repeat chest X- ray and cardiac enzymes ordered. Blood pressure. In target. Fluid volume. Expanded. Continue hemodialysis. Anemia. In target. Electrolytes. Stable. Anion gap acidosis. Consistent with renal disease.
[2019-08-20] MEDS: NEURONTIN PO SCH (18:28)
[2019-08-20] MEDS: APRESOLINE PO SCH (18:28)
[2019-08-20] MEDS: HUMULIN R SUBQ SCH ×2 (18:28→21:15)
[2019-08-20] MEDS: LIPITOR PO SCH (20:43)
[2019-08-21] MEDS: ZOSYN 3.375 GM in NS 50 ML IV SCH ×2 (00:16→06:34)
[2019-08-21] MEDS: TYLENOL PO PRN ×2 (00:17→22:15)
[2019-08-21] MEDS: NORCO-7.5 PO SCH ×4 (03:01→20:27)
[2019-08-21] MEDS: HUMULIN R SUBQ SCH ×4 (06:02→20:51)
[2019-08-21] MEDS ORDERED: NS 2,000 ML MISC PRN (06:11)
[2019-08-21] MEDS ORDERED: TIGHT: 0.2 ML/HR FOR DIALYSIS MISC PRN (06:11)
[2019-08-21] MEDS ORDERED: HEPARIN IV PRN (06:11)
[2019-08-21] MEDS ORDERED: IMDUR PO SCH (09:00)
--- NOTE | 2019-08-21 09:16 | NEPHROLOGY PROGRESS NOTE ---
DATE: 08/21/2019 TIME SEEN: 0645. SUBJECTIVE: Ms. Avila is resting quietly in bed. Still states that her chest is tender to touch, right more than left. Denies any injury. OBJECTIVE: Vital Signs: Temperature 98 degrees, blood pressure 101/56, heart rate 81, respirations 18. She is on 2 L nasal cannula. Last recorded saturation 98%. She has had 820 in, 0 recorded out. Labs: She has labs currently pending this a.m. Previous potassium of 3.9 with a BUN of 33, creatinine 5.1. Previous hemoglobin 12.2. Physical Examination: General: This is a 48-year-old, white female. She is resting quietly in bed. She appears chronically ill. No acute distress. Skin is warm and dry. HEENT: Normocephalic, atraumatic. Conjunctivae are pale. She has WILLIAMS. Mucous membranes are dry. Neck: Supple. Trachea midline. She has negative JVD. Cardiovascular: She is regular rate and rhythm with a soft systolic murmur. Lungs: Clear to auscultation bilaterally. Equal excursion, on O2. Abdomen: Soft, large, round, nontender. Positive bowel sounds. Genitourinary: Not inspected. Minimal void, with dialysis assist. Extremities: Has trace bilateral pretibial edema. Neurological: She is alert and oriented x3. Integumentary: No rashes or lesions evident. No bruises or abrasions noted to her chest wall. ASSESSMENT AND PLAN: 1. Chronic kidney disease stage 5D. The patient is due for her routine dialysis treatment today. She is to be placed on a 2 K bath. She is to dialyze for 3.5 hours. We will attempt to pull her to her outpatient dry weight. 2. Electrolytes and acid-base balance, with correction on dialysis. 3. Anemia. This is in target. Hemoglobin of 12.2. 4. Chest pain. The patient states that this is more topical than deep into the chest. It has improved slightly since her hospitalization. Likely post op pain. I would like to thank you for allowing us to follow with this patient. Dictated by RAFAELA Rodrigues for Aaron Jones MD Face to face encounter, data reviewed, discussed with Sujata Foster on 08/21/19. I agree with the above assessment and plan of care. cc: RAFAELA Rodrigues MD MTDD
[2019-08-21] MEDS: NEURONTIN PO SCH ×2 (09:30→18:46)
[2019-08-21] MEDS: APRESOLINE PO SCH ×2 (09:33→09:47)
[2019-08-21] MEDS: COREG PO SCH ×2 (09:33→20:27)
[2019-08-21] MEDS: HUMULIN 70/30 SUBQ SCH (09:33)
[2019-08-21] MEDS: ASPIRIN PO SCH (09:47)
[2019-08-21 11:47] LABS: ALBUMIN 2.6 g/dL (3.5-5.0); CALCIUM 7.8 mg/dL (8.8-10.2); CREATININE 6.9 mg/dL (0.5-0.9); PHOSPHORUS 5.4 mg/dL (2.7-4.5); POTASSIUM 4.7 mmol/L (3.5-5.1)
--- NOTE | 2019-08-21 13:11 | ECHO REPORT ---
ORDER DATE: 08/20/2019 MEASUREMENTS: Septal thickness: 1.2. Left ventricle internal diameter end-diastole: 4.0. Left ventricle internal diameter end-systole: 2.2. Aortic root: 3.0. Left atrium: 3.6. SUMMARY: 1. Technically difficult study due to limited acoustic window quality. 2. The aortic valve is trileaflet and opens normally on 2-dimensional images. The peak gradient across the aortic valve is 10 mmHg. Mitral and tricuspid valves are without gross structural abnormality with trace mitral regurgitation. The pulmonic valve is not well demonstrated. The aortic root is normal in size. 3. Normal left ventricular chamber size with mild concentric left ventricular hypertrophy suggested. The estimated left ventricular ejection fraction appears to be at least 60%. No obvious wall motion abnormality can be appreciated. The left atrium is mildly enlarged. The right atrium and the right ventricle are grossly normal in size. 4. No pericardial effusion. 5. Inferior vena cava not well demonstrated. cc: MD Francy Mayer CRNP
--- NOTE | 2019-08-21 13:48 | PROGRESS NOTE ---
DATE: 08/21/2019 INTERVAL HISTORY: She did have episode of fever yesterday with temperature of 102.1 degrees, SUBJECTIVE: Ms Avila is feeling much better than when she presented with. She is still complaining of cough, but she is not able to bring up expectoration. She denies feeling short of breath. She denies any more chest pain. However, her chest does hurt when she coughs. VITALS: Temperature 98.1 degrees, pulse 69, respiratory rate 22, blood pressure 115/72 she is saturating 100% on room air. PHYSICAL EXAMINATION: She is a little drowsy.HEENT: Oral cavity is moist. Lungs: She does have poor respiratory effort with mild crackles on bilateral infrascapular region. Cardiovascular: S1, S2 normal. Regular. No murmur or gallop. She has a scar of CABG with some crusting at the epigastric region. She also has localized tenderness on the chest with small fluctuant area at the upper border of sternum. It is tender, non erythematous.. There is no oozing or pus coming out. Abdomen: Obese, soft, nontender. Active bowel sounds. No lower extremity edema. Input and output suggest she had a bowel movement yesterday. Neurologic: She was alert, though drowsy, but easily arousable. She was able to reposition herself in the bed. LABS: Suggestive of no CBC. BMP suggestive of sodium of 130, potassium 4.7, BUN 55, creatinine 6.9, blood glucose 181. Her repeat blood cultures have been ordered. Previous 2 sets of blood culture are growing gram-positive cocci. IMAGING: Renal ultrasound performed yesterday had small kidneys with cortical thinning. ASSESSMENT AND PLAN: 1. Sepsis due to bilateral multifocal pneumonia versus left-sided chest dialysis catheter associated gram-positive sepsis. Stop intravenous Zosyn. Continue intravenous vancomycin after dialysis. Repeat blood cultures have been ordered. Follow up echocardiogram to rule out infective endocarditis. Based on culture final culture and speciation, I would consider getting Infectious Disease consult eventually. Follow up CT thorax to rule out an abscess around sternotomy site. 2. Chest pain at rest. This happens at the time of cough with significant musculoskeletal tenderness on exam. Initial 1st 2 troponins were showing flat trend. Her EKG did have old anterolateral T-wave inversion. I will continue home aspirin, carvedilol, and high-dose atorvastatin for history of coronary artery disease requiring CABG in May 2019. I will resume her isosorbide and hydralazine as needed when her blood pressure is stable. 3. History of insulin-dependent diabetes mellitus. Currently blood glucose in acceptable range on current dose of insulin Humulin 70/30, and sliding scale insulin 4. Others continue home [place] for chronic pain, gabapentin for diabetic neuropathy of which I have decreased the dose of considering she was drowsy on my examination and she is on dialysis. DISPOSITION: Monitor patient inside the hospital as I await further blood culture data. Plan of care discussed with the patient and all of her questions have been answered. cc: Nba Lemons MD MTDD
[2019-08-21] MEDS ORDERED: BIDEX PO PRN (14:59)
[2019-08-21] MEDS: MUCOMYST 20% INH SCH ×2 (15:06→19:33)
[2019-08-21] MEDS ORDERED: VANCOMYCIN 1 GM/NS 1 GM/250 ML IVPB IV ONE (17:00)
[2019-08-21] MEDS: DUONEB (A & A) INH PRN (19:33)
[2019-08-21] MEDS: LIPITOR PO SCH (20:28)
[2019-08-22] MEDS: NORCO-7.5 PO SCH ×2 (01:30→08:18)
[2019-08-22 05:15] LABS: BASO# 0.06 X1000 (0.0-0.2); BASO% 0.4 % (0.0-0.8); EOS# 0.06 X1000 (0.0-0.7); EOS% 0.4 % (0.0-10.0); HEMATOCRIT 34.1 % (37.0-47.0); HEMOGLOBIN 10.8 g/dL (12.0-16.0); IMM GRAN# 0.14 X1000 (0.0-0.04); IMM GRAN% 0.9 % (0.0-0.5); LYMPH% 10.1 % (20.5-51.1); MCH 30.2 PG (27-31); MCHC 31.7 g/dL (33-37); MCV 95.3 FL (81-99); MONO# 1.09 X1000 (0.11-0.59); MONO% 7.3 % (1.7-9.3); MPV 9.9 FL (7.4-10.4); NEUT# 12.05 X1000 (1.4-6.5); NEUT% 80.9 % (42.2-75.2); PLT 197 X1000 (130-400); RBC 3.58 XMIL (4.2-5.4); RDW 15.4 % (11.5-14.5)
[2019-08-22 05:38] LABS: ALBUMIN 2.6 g/dL (3.5-5.0); CALCIUM 8.3 mg/dL (8.8-10.2); PHOSPHORUS 4.3 mg/dL (2.7-4.5); POTASSIUM 4.2 mmol/L (3.5-5.1)
[2019-08-22] MEDS: HUMULIN R SUBQ SCH ×3 (05:59→17:14)
[2019-08-22] MEDS: ASPIRIN PO SCH (08:19)
[2019-08-22] MEDS: COREG PO SCH (08:19)
[2019-08-22] MEDS: NEURONTIN PO SCH (08:19)
[2019-08-22] MEDS: HUMULIN 70/30 SUBQ SCH (08:20)
[2019-08-22] MEDS: MUCOMYST 20% INH SCH ×2 (10:10→19:42)
[2019-08-22] MEDS: DUONEB (A & A) INH PRN (10:10)
[2019-08-22] MEDS ORDERED: NORCO-7.5 PO PRN (10:38)
[2019-08-22] MEDS ORDERED: KEFZOL 1 GM/D5W 1 GM/50 ML IVPB IV ONE (11:16)
[2019-08-22 11:30] LABS: HEPATITIS PROFILE ACUTE SEE COMMENTS
[2019-08-22] MEDS ORDERED: KEFZOL 1 GM/D5W 1 GM/50 ML IVPB IV SCH (11:30)
--- NOTE | 2019-08-22 11:40 | PROGRESS NOTE ---
DATE: 08/22/2019 INTERVAL HISTORY: No acute events overnight. She did develop episodes of hypotension yesterday, which later on got better around dialysis time. She continues to have a degree of fever. Latest fever episode was yesterday night. SUBJECTIVE: Ms. Avila appears very drowsy, but she is able to engage in conversation, and she was receiving scheduled dose of narcotic. I decreased the frequency and made it as needed. I also stopped her gabapentin. She continues to have chest wall site pain. OBJECTIVE: Vital Signs: Temperature 97.8 degrees, pulse 74, respiratory rate 19, blood pressure 125/60, saturating 100% on 2 L nasal cannula. General: Not in any acute distress. She is sitting at the edge of the bed. HEENT: Oral cavity is dry. Lungs: Air entry bilaterally decreased with inspiratory crackles, bilateral infrascapular region. Cardiovascular: S1, S2 normal. No murmur or gallop. There is a sternotomy site, and there is a fluctuant area at the superior border of sternum, which is tender. Otherwise, the sternotomy wound appears to be healing well. There is crusting at the lower end of the sternotomy wound, without any oozing or erythema. There is tenderness over the wound. Abdomen: Soft, nontender. Extremities: Mild lower extremity edema. Neurologic: She is drowsy, but arousable, and is able to answer most questions otherwise. LABORATORY DATA: WBC of 14,000, hemoglobin 10.8, platelets 197,000. BUN of 30, creatinine 5, blood glucose 145. MICROBIOLOGY: Blood cultures continue to remain positive. IMAGING: No new imaging. ASSESSMENT AND PLAN: 1. Sepsis due to bilateral multifocal pneumonia versus left-sided chest dialysis catheter- associated methicillin-sensitive Staphylococcus aureus sepsis versus sepsis originating from sternotomy wound site. I will get a CT scan of the thorax to rule out any abscess around the sternotomy site. Infectious Disease has been consulted. Appreciate recommendation regarding changing intravenous vancomycin to oxacillin, and I will consider repeat blood cultures. 2. Chest pain at rest, likely related to cough, with significant musculoskeletal tenderness on examination. Troponins had flat trend. Electrocardiogram had old anterolateral T-wave inversions. Continue home aspirin, carvedilol, high-dose atorvastatin for history of coronary artery bypass graft in 05/2019. Hold isosorbide and hydralazine because of hypotension. 3. History of insulin-dependent diabetes mellitus. Currently, blood glucose in acceptable range. I will continue current dose of insulin 70/30 and sliding scale insulin. 4. Others. Continue [place] as needed for pain. Stop gabapentin because she has been drowsy. 5. History of end-stage renal disease, on Monday, Monday, Monday hemodialysis through left- sided chest dialysis catheter. Nephrology team on board. 6. Disposition. Awaiting CT scan of thorax. Appreciate Infectious Disease recommendation. Plan of care discussed with the patient, and all of her questions have been answered. cc: Nba Lemons MD MTDD
--- NOTE | 2019-08-22 13:02 | INFECTIOUS DISEASE CONSULT REP ---
DATE: 08/22/2019 CONCLUSION: The patient has an oxacillin sensitive Staph aureus bacteremia. I think this originates from a sternal infection with abscess formation at the top of the sternal incision. RECOMMENDATIONS: I have discontinued vancomycin and I have started the patient on Ancef with a 1 g dose IV now and then 1 g after each dialysis. I agree with Dr. Lemons to do a CT scan of the chest without IV contrast. If an abscess is present, I would suggest aspirating the abscess and send it for culture. If indeed the patient does have an infection of the sternum, I think he should be sent back to Dr. Oleary who operated on him at [facility] for him to do the surgery, which most likely would be draining the abscess and possibly removing any of the infected bone. DISCUSSION: The patient did not seem to be a very good historian. She tells me that approximately 4 to 5 days ago, she began having fever and nausea. She also started having some upper chest pain. The patient's blood cultures are growing an oxacillin sensitive Staph aureus. The patient's CBC shows a white count of 14,900, hemoglobin 10.8, and platelet count a 197,000 creatinine is 5, GFR is 9. Alkaline phosphatase is 183. CPK is 694. Screen for influenza is negative. CT scan of the head showed chronic ischemic changes. The patient's latest chest x-ray shows no infiltrates. PAST MEDICAL HISTORY/REVIEW OF SYSTEMS: Eyes and ears: The patient can see and hear well. Neck: No stiffness. Respiratory: No cough or shortness of breath. Cardiac: The patient is having upper chest pain, but I think it is due to the presumed infection of the sternum rather than due to cardiac causes. Abdomen: The patient has not felt much like eating, but she is not having diarrhea or vomiting. Genitourinary: No dysuria or flank pain. Bones/joints/muscles: See present illness about the presumed upper chest fluctuant area involving the sternum and sternoclavicular joints. PREVIOUS HOSPITALIZATIONS AND OPERATIONS: The patient has had coronary artery bypass grafting. She has also had placement of a left chest dialysis site. The patient has had labor and delivery of 1 child. INSURANCE MARKETING SPECIALIST HISTORY: She is 4, para 1, AB 3. MEDICAL DISEASES: Positive for obesity, hyperlipidemia, diabetes mellitus, end-stage renal disease, coronary artery disease, strokes and hypertension. The patient is a cigarette smoker. INFECTIOUS DISEASE HISTORY: Positive for pneumonia. FAMILY HISTORY: Positive for diabetes mellitus, hypertension, and myocardial infarction. SOCIAL HISTORY: The patient lives in [place]. She is from her . She smokes cigarettes. She does not drink alcoholic beverages or abuse drugs. ALLERGIES: The patient's chart lists no known drug allergies. MEDICATIONS: Medications taken at home include Lipitor, Neurontin, Apresoline, hydrocodone, insulin, Isordil, and Robaxin. PHYSICAL EXAMINATION: Vital Signs: Earlier temperature was 102 degrees. It is 97.8 now, pulse 67, respirations 18, blood pressure 125/60. The patient weighs 223 pounds. General: This is an obese, chronically ill-appearing, middle-aged female. She is lethargic. Head, Eyes, Ears, Nose and Throat: She can hear my spoken words and see near objects. I do not see any white coating on her tongue. Neck: No meningismus. Lungs: Clear to auscultation. Cardiovascular: Regular heart rate. Thorax: The patient has in the upper part of her thorax, a fluctuant area involving most likely the sternum and sternoclavicular joints. The area was tender. The patient has a tunneled dialysis catheter in place. The catheter site is not fluctuant or erythematous. Neurologic: The patient is lethargic. She can walk with somebody holding onto her. She can move her extremities. There is no tremor. I am uncertain as to how good her memory is. Integument: No rash. Thank you for the consult. cc: Ayaan Chahal MD
--- NOTE | 2019-08-22 13:03 | Diag Imaging Result Doc PS360 ---
EXAM: CT THORAX W/O CONTRAST INDICATION: Evaluate for abscess around sternotomy site TECHNIQUE: This exam was performed using automated exposure control, adjustment of mA or kV according to patient size, and/or use of iterative reconstruction technique. COMPARISON: 08/23/2017 FINDINGS: There is interstitial thickening and mild groundglass infiltrates with a basilar predominance bilaterally indicating pulmonary edema. There is subsegmental atelectasis in the right middle lobe and lingula. There is no significant pleural fluid collection and no pneumothorax. There is stable cardiomegaly. There is trace pericardial fluid that has actually decreased since the previous study. There has been a recent sternotomy and presumed CABG. There is a fluid collection at the sternotomy site surrounding the sternum that measures up to 7.7 x 6.0 cm axially and up to 19.6 cm craniocaudally. It spreads along the entire length of the sternum. There are a few tiny gas droplets within the fluid. If there is an open skin wound, this could be atmospheric gas. However, abscess cannot be excluded. This also could represent a large postsurgical seroma. Limited views of the upper abdomen are essentially unremarkable. IMPRESSION: 1.Large soft tissue fluid collection at the recent sternotomy site surrounding the sternum. Consider large postsurgical seroma versus abscess. 2.Mild to moderate pulmonary edema. Electronically signed by Toñito Leal 08/22/2019 1:00 PM
--- NOTE | 2019-08-22 18:51 | INFECTIOUS DISEASE CONSULT REP ---
DATE: 08/22/2019 ADDENDUM: I did explain to the patient that I needed to aspirate the mass on top of the sternum because I thought it could be an abscess. She gave me her permission to do it. I told her that the main adverse reaction from it would be if she was bleeding. I cleaned the area with alcohol and then under sterile condition aspirated the fluid. I did not have to go very deep at all and the fluid that came out is very thick purulent fluid. Therefore, the patient has an abscess on her chest which occurred after she had coronary artery bypass grafting done by Dr. Oleary in May. I called over to [facility] and talked to Dr. Bj Oleary's nurse practitioner. Dr. Oleary operated on the patient and we are underway trying to get the patient transferred to the cardiothoracic surgeons to send the patient over to [place] to transfer to Dr. Oleary's list. cc: Ayaan Chahal MD
[2019-08-22 19:56] VITALS: BP 108/57
--- NOTE | 2019-08-22 20:02 | NEPHROLOGY PROGRESS NOTE ---
DATE: 08/22/2019 TIME SEEN: 0635 hours. SUBJECTIVE: Ms. Avila is sitting up on the side of the bed this a.m. She continues to complain of some chest tenderness. No injury noted upon inspection. No recent falls. OBJECTIVE: Vital signs: Temperature 97.5 degrees, blood pressure 95/52, heart rate is 72, respirations are 18. She is on 2 L nasal cannula. Last recorded saturation 98%. She has had 480 in. She has had 2506 out with dialysis. This is a 48-year-old white female. She is resting quietly in bed. She appears chronically ill, in no acute distress. Skin is warm and dry.HEENT: Normocephalic, atraumatic. Conjunctiva is pale pink. She has WILLIAMS. Mucous membranes are dry. Neck is supple. Trachea midline. She has no JVD in the upright position. Cardiovascular: Regular rate and rhythm. Soft systolic murmur. Lungs are clear to auscultation bilaterally. Equal excursion. She is currently on O2. Abdomen is large, round, soft, nontender. Positive bowel sounds. Genitourinary: Not inspected. Minimal void with dialysis assist. Extremities have trace bilateral dependent edema. Neurological: She is alert and oriented x3. LABORATORY DATA: Sodium 132, potassium 4.2, chloride 93, CO2 is 24, BUN is 30, creatinine 5, glucose 152. Her anion gap is 15. Calcium 8.3, phosphorus 4.3, albumin 2.6. White count 14.9, hemoglobin 11.8, hematocrit 34.1, with a platelet count of 197,000. ASSESSMENT AND PLAN: 1. Chronic kidney disease stage 5D. The patient is due for her routine dialysis treatment in the a.m. No indications for intervention today. 2. Electrolytes and acid-base balance. These have been acceptable. 3. Anemia. This is in target. 4. Chest pain. Abscess superior sternum. Dr. Chahal is managing antibiotics. We would like to thank you for allowing us to follow with this patient. Dictated by RAFAELA Rodrigues for Aaron Jones MD Face to face encounter, data reviewed, discussed with Sujata Foster on 08/22/19. I agree with the above assessment and plan of care. cc: RAFAELA Rodrigues MD [facility]
--- NOTE | 2019-08-23 16:01 | DISCHARGE SUMMARY ---
ADMISSION DATE: 08/19/2019 DISCHARGE DATE: 08/22/2019 DISCHARGE DISPOSITION: Patient is currently being transferred to [facility] for cardiothoracic surgery evaluation for coronary artery bypass graft, sternotomy site abscess evaluation and exploration. DISCHARGE CONDITION: The patient appears hemodynamically stable. She has not had any fever episodes since today morning. She is not tachycardic. Her blood pressure has been normal since morning. DISCHARGE DIAGNOSES: 1. Sepsis due to methicillin-sensitive Staphylococcus aureus. Potential sources being most likely coronary artery bypass graft, sternotomy site abscess. 2. Localized musculoskeletal chest pain at the sternotomy site with a fluctuant mass. 3. Bilateral multifocal pneumonia which is improving. 4. Hypotension due to Sepsis as well as use of anti-hypertensive medicines OTHER DIAGNOSES: 1. History of insulin-dependent diabetes mellitus. 2. History of chronic pain. 3. History of peripheral neuropathy. 4. History of end-stage renal disease on Monday, Monday, Monday hemodialysis through left- sided chest dialysis catheter. 5. History of coronary artery bypass graft in May 2019. CURRENT MEDICATIONS: 1. Atorvastatin 80 mg at nighttime. 2. Acetaminophen 650 mg every 4 hours as needed. 3. Mucomyst 3 mL routine inhaled b.i.d. 4. DuoNeb 3 mL every 6 hours as needed for shortness of breath. 5. Aspirin 325 mg daily. 6. Coreg 25 mg b.i.d. 7. Guaifenesin 200 mg 4 times a day as needed for cough. 8. [place] 7.5 one tablet every 8 hours as needed for pain. 9. Sliding scale human insulin every 6 hours. 10. Insulin Humulin 70-30, 20 units in the morning time. 11. Cefazolin 1 g intravenous after dialysis. 12. Methocarbamol 500 mg orally daily. 13. Zofran 4 mg intravenous every 4 hours as needed for nausea and vomiting. CURRENT VITALS: Temperature 97.7 degrees, pulse 76, respiratory rate 19, blood pressure 120/61, saturating 100% on 2 L nasal cannula. PHYSICAL EXAMINATION: General: Not in acute distress. HEENT: Oral cavity is moist. Respiratory: She does have inspiratory crackles in bilateral infrascapular region. Cardiovascular: S1, S2 normal. No murmur or gallop. She has a left-sided chest dialysis catheter. The site appears noninflamed. She also has a recent sternotomy site in the midline for coronary bypass graft. There is about 7 x 2 cm fluctuant mass at the upper end of sternum and about 5 x 2 cm crusting at the lower end of sternum. There is superficial tenderness over the sternotomy scar. There is no purulence, erythema or warmth overlying. LABS: At the time of discharge, WBC 81151, hemoglobin 10.8, platelets 197,000, BUN 30, creatinine 5, blood glucose 152. MICROBIOLOGY: Blood cultures drawn on August 19 is growing Staphylococcus aureus which is sensitive to oxacillin. Blood cultures drawn on August 21 is also positive for gram-positive cocci. The final result is pending. CONSULTATIONS DURING HOSPITAL ADMISSION: 1. Nephrology, Dr. Jones. 2. Infectious Disease, Dr. Chahal. IMAGING: During hospital admission and discharge: Chest x-ray on 08/19 had pulmonary edema and/or pneumonia. Head CT on 08/19 had chronic ischemic changes without evidence of acute intracranial disease chest x-ray on 08/20 had interval improvement. Echocardiogram on 08/20 had ejection fraction of 60% without any obvious wall motion abnormality. Renal ultrasound on 08/20 had kidneys with mild cortical thinning. Chest CT performed on 08/22 had large soft tissue fluid collection at the recent sternotomy site surrounding the sternum with large postsurgical seroma versus abscess. There was [id number] pulmonary edema. PROCEDURES DURING HOSPITAL ADMISSION: Infectious Disease physician performed bedside aspiration of the cyst which had gross purulence which was sent to the lab. HOSPITAL COURSE SUMMARY: Ms. Avila is 48-year-old lady who presented on 08/19/2019 with chief complaints of fever, chest pain, and generalized body aches. She has past history of end-stage renal disease on Monday, Monday, Monday hemodialysis through left- sided chest wall dialysis catheter, coronary artery bypass graft in 05/2019 and cerebrovascular accident. In the emergency room she was found to have temperature of 101.2 degrees, pulse of 104, respiratory rate of 15 and blood pressure of 169/91. She was saturating 93% on room air. She was diagnosed with sepsis. Chest x-ray did have bilateral infiltrates suggestive of pulmonary edema versus pneumonia and initially she was admitted for sepsis due to bilateral pneumonia and was started on intravenous vancomycin and intravenous Zosyn. Sputum culture was collected. The final results are still pending and a repeat chest x-ray had suggested her infiltrates were improving, though she did not have any organized consolidation on the chest x-ray. The blood cultures turned positive with Staphylococcus aureus which was sensitive to methicillin so Zosyn was stopped and she was continued on vancomycin. Throughout the hospital stay, the patient kept having complaints of cough and with cough she also had sternotomy site pain. On examination of the sternotomy site she did have a fluctuant mass without any erythema or purulence, and the sternotomy site had not healed completely, especially at the lower end. Considering possible source of infection. Recent surgery CT scan thorax was performed which did in fact detect that she had an abscess seroma around sternotomy site, so Infectious Disease was consulted who performed bedside aspiration and had gross purulence. It was thought that her source of MSSA bacteria was actually sternotomy site abscess. Her antibiotics were changed to cefazolin and the cardiothoracic surgeon Dr. Oleary at [facility] was contacted by Infectious Disease. Infectious Disease doctor directly talk with Dr. Oleary's, nurse practitioner and I have been informed that they had accepted the patient. Please note, I did not contact the cardiothoracic surgery team through transfer Center since infectious disease team had already directly contacted Dr. Oleary. I confirmed that the nursing team had already received some communication from [facility], but she did not have any bed assignment. Whenever patient has bed, the patient is okay to be discharged. TIME SPENT AT DISCHARGE: More than 30 minutes time was spent in preparing this discharge. cc: MD MANDA Zhou
== END 2019-08-22 20:16 | disposition other institution (70) | DRG 862 ==
LOC: P.ED 12:18 → SUATTDRO 17:09 → 1N 17:09
PROVIDERS: ATTEND Internal Medicine